=== PATIENT | male | born 1930 | race Caucasian/White ===

== ENCOUNTER 2017-07-06 11:50 | Inpatient (IN) | payer MEDICARE ==
--- NOTE | 2017-07-06 15:05 | RAD ---
HISTORY: Fall, right hip injury COMPARISONS: None VIEWS: 3, Frontal view of the pelvis with frontal and frog-leg views of the right hip FINDINGS: BONE DENSITY: There is diffuse osteopenia. BONES: There is a slightly impacted and angulated fracture of the subcapital right femoral neck. JOINTS: There is osteoarthritis of the hips ALIGNMENT: There is no dislocation. SOFT TISSUES: Unremarkable. OTHER FINDINGS: Degenerative changes are noted of the spine IMPRESSION: SLIGHTLY ANGULATED AND IMPACTED RIGHT FEMORAL NECK FRACTURE
[2017-07-06] MEDS ORDERED: Morphine INJ* 4 MG/ML 1 ML SYRINGE IV ONE (15:09)
[2017-07-06] MEDS ORDERED: Ondansetron INJ* 2 MG/ML VIAL IV ONE (15:11)
[2017-07-06 15:46] LABS: Hematocrit 39 % (42-52); Hemoglobin 13.2 g/dl (14.0-18.0); Mean Corpuscular HGB Conc 34 g/dl (31-36); Mean Corpuscular Hemoglobin 29 pg (27-31); Mean Corpuscular Volume 86 fL (80-94); Mean Platelet Volume 8 um3 (7.4-10.4); Red Blood Count 4.53 10^6/ul (4.0-5.4); Red Cell Distribution Width 15 % (10.5-15); White Blood Count 18.4 10^3/ul (3.5-10.8)
[2017-07-06 16:05] LABS: Albumin 4.5 g/dL (3.2-5.2); BUN/Creatinine Ratio 17.3 (8-20); Calcium 9.5 mg/dL (8.6-10.3); EGFR Non-African American 63.8 (>60); Globulin 3.2 g/dL (2-4); Total Protein 7.7 g/dL (6.4-8.9)
[2017-07-06 16:06] LABS: Troponin I 0.03 ng/mL (<0.04)
[2017-07-06] MEDS ORDERED: Morphine INJ* 2 MG/ML 1 ML SYRINGE IV PRN (16:51)
[2017-07-06] MEDS ORDERED: oxyCODONE TAB* 5 MG TAB PO PRN (16:51)
--- NOTE | 2017-07-06 17:57 | RAD ---
HISTORY: Fall, right hip injury COMPARISONS: December 26, 2015 VIEWS:1: Single frontal portable view of the chest at 5:35 PM FINDINGS: LINES AND TUBES: None. CARDIOMEDIASTINAL SILHOUETTE: The cardiomediastinal silhouette is normal for portable technique. PLEURA: The costophrenic angles are sharp. No pleural abnormalities are noted. LUNG PARENCHYMA: There is hyperinflation. ABDOMEN: The upper abdomen is clear. There is no subphrenic gas. BONES AND SOFT TISSUES: No bone or soft tissue abnormalities are noted. IMPRESSION: NO ACTIVE CARDIOPULMONARY DISEASE.
[2017-07-06] MEDS: Acetaminophen TAB* 325 MG PO SCH (18:22)
[2017-07-06] MEDS ORDERED: Buffered Lidocaine 0.9% SYRIN* 5 ML/SYR SYRINGE INTRADERM ONE (19:26)
--- NOTE | 2017-07-06 21:48 | HP ---
CC: Dr. Gonzalez * HISTORY AND PHYSICAL: DATE OF ADMISSION: 07/06/17 PRIMARY CARE PROVIDER: Dr. Gonzalez. CHIEF COMPLAINT: Right hip pain. HISTORY OF PRESENT ILLNESS: Mr. Damian is an 86-year-old male with a history of CVA in August 2016, hypertension, hyperlipidemia, and depression who presents to the emergency room after sustaining a fall the day prior to admission. Per the patient, he was trying to get up out of a chair and was utilizing his cane, though his right leg gave out and he was unable to hold himself up with a cane. The patient fell to the right. His son was presented at the time of the fall and helped to get him up and over to the couch. The patient lied on the couch and there were concerned that his knee may have been injured. Therefore, they iced his knee. The patient was able to get up from the couch and with significant assistance from the son and using a 4-wheeled walker walk to his bedroom. He lied in bed all night long. He did not sleep well, however, due to pain. The patient has had 3 doses of Extra Strength Tylenol since the fall yesterday. The patient had continued pain. Therefore, he came to the emergency room to be evaluated. The patient denies any lightheadedness, chest pain, or shortness of breath prior to or at the time of his fall. He overall is feeling okay at this point and denying any significant pain. PAST MEDICAL HISTORY: 1. 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 2. Hypertension. 3. Hyperlipidemia. 4. Depression. PAST SURGICAL HISTORY: 1. Appendectomy. 2. Prostatectomy. 3. Bilateral cataract extraction. 4. Tonsillectomy. MEDICATIONS: 1. [place] 3 fatty acid 1000 mg p.o. daily. 2. Omeprazole 20 mg p.o. daily. 3. Metoprolol tartrate 12.5 mg p.o. twice daily. 4. Lamotrigine 225 mg p.o. q.h.s. 5. Ferrous gluconate 325 mg p.o. daily. 6. Vitamin B12 1000 mcg p.o. daily. 7. Plavix 75 mg p.o. daily. 8. Lipitor 40 mg p.o. daily. ALLERGIES: No known drug allergies. FAMILY HISTORY: Mom of what the patient's son believes is complications related to dementia. Dad had a history of CVA. SOCIAL HISTORY: The patient is a former smoker. He quit approximately 40 plus years ago. He drinks alcohol on occasion. 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 He is . He has 3 children. His son, Sam, is his healthcare proxy. REVIEW OF SYSTEMS: A complete 11-system review of systems is obtained. Pertinent positives and negatives are as per HPI and otherwise negative. PHYSICAL EXAMINATION GENERAL: The patient is a well-developed, elderly thin male, lying in bed, in no acute distress. VITAL SIGNS: Blood pressure 141/60, pulse 67, respirations 16, temp 98.0, O2 sat is 96% on room air. HEENT: Pupils are equal. They are round. There is evidence of prior cataract extraction. Extraocular muscles are intact. Oropharynx is clear. Oral mucosa is moist. There is no submandibular, cervical, or supraclavicular adenopathy. Thyroid is not enlarged. No thyroid nodules are noted. PULMONARY: Lungs are clear anteriorly and at the lateral bases. CARDIAC: Normal S1 and S2. Regular rate and rhythm. I do not appreciate any murmurs, rubs, or gallops. ABDOMEN: Bowel sounds present. Abdomen is soft, nontender, nondistended. MUSCULOSKELETAL: The right lower extremity is shortened and externally rotated. SKIN: Warm and dry. I did not appreciate any rashes. There is a large area of purple bruising on the right forearm that the patient's son believes is from him trying to help him up yesterday. NEURO: Cranial nerves II through XII are grossly intact. Sensation is intact to light touch throughout. The patient is mildly dysarthric and aphasic. PSYCH: The patient appears to be alert and oriented x3. Affect appears appropriate. LABORATORY DATA: WBC 18.4, hemoglobin 13.2, hematocrit 39, platelets 848. INR 0.98. Sodium 133, potassium 4.0, chloride 97, CO2 27, BUN 19, creatinine 1.10, glucose 119, lactic acid 1.5, calcium 9.5, albumin 1.4, AST 14, ALT 31, alk phos 81, troponin 0.03, albumin 4.5. Right hip x-ray revealed slightly angulated and impacted right femoral neck fracture. 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 This is unchanged from prior. ASSESSMENT AND PLAN: Mr. Damian is an 86-year-old male who sustained a mechanical fall the day prior to admission and is now found to have a right hip fracture. 1. Right hip fracture. Management of this will be per Orthopedics. The patient in terms of his cardiac risk is not terribly active at home needing a walker or a cane to get around. He denies any chest pain at this point. The patient had an echocardiogram in August 2016, which revealed an EF of 55% to 60 %. Mild concentric LVH was observed. There is increased basal septal hypertrophy noted without evidence of an increased gradient across the left ventricular outflow tract. Left ventricular wall motion contractility were felt to be within normal limits. At this point, I do believe the patient is optimized for surgery. He has been on Plavix, however. Per Dr. Mandujano from the Plavix standpoint, the patient go to the OR tomorrow. I do feel that the patient is likely moderate to high risk given his history of being on Plavix, his age, and overall somewhat frail-appearing nature. Again, I do not feel that any further cardiac testing would be beneficial in this patient. 2. DVT prophylaxis will consist of subcu heparin tonight being held this evening for planned surgery tomorrow. The patient will be n.p.o. after midnight. 3. Hypertension. The patient will be maintained on his usual dose of metoprolol tartrate. His blood pressure is under fair controlled in 130s to 140s range. At this point, I do not feel that we need to be more aggressive in lowering his blood pressure. 4. Depression. The patient will continue on his usual dose of lamotrigine. 5. History of cerebrovascular accident. The patient will continue on his statin, but his Plavix will be held for now though this will need to be restarted as soon as possible after being okayed by Orthopedics. 6. DVT prophylaxis. According to the Adult Thrombosis Prophylaxis Risk Factor Assessment Guide, the patient has a total risk factor score of 8 making him the highest risk,. He will be placed on heparin 5000 units subcutaneous q.8 hours and SCDs. 7. Code status is DNR. Again, the patient indicates that his son, Sam, is his healthcare proxy. TIME SPENT: 65 minutes were spent admitting this patient. [id number]/[facility] #: [id number] ARABELLA
[2017-07-06] MEDS ORDERED: Heparin VIAL(*) 5000 UNITS/ML VIAL (FIVE THOUSAND) SUBCUT SCH (22:00)
--- NOTE | 2017-07-06 22:20 | CONS ---
CONSULTATION REPORT: DATE OF CONSULTATION: 07/06/17 HISTORY OF PRESENT ILLNESS: The patient is an 86-year-old man, a community ambulator with his son with a walker or cane, who presents status post a fall at home, mechanical, sustained last night at approximately 6:30 p.m. on 07/05/17 , who presented via the emergency department today with complaints of right hip pain and x-rays demonstrated at a right hip fracture. Orthopedic Surgery consultation was called. I am very familiar with the patient and his son as the patient is a clinic patient of [facility]. I have managed him for multiple months nonoperatively for right knee osteoarthritis, severe valgus type. The patient's recent past medical history has been significant for a cerebrovascular accident with a prolonged recovery from that. The patient and his son states that last night at approximately 6:30 p.m., the patient was getting up from a chair and turning, with a cane in his right hand when he lost his footing and fell. He landed on his right side. This was unwitnessed, but the patient's son came into the room and found him on the ground. At first, the patient and his son thought that the pain was secondary to his right knee, that has been painful in the past. His right knee was iced at first. The patient rested. When the patient had pain that persisted today that he localized closer to the hip, the patient's son decided to bring him to the emergency department for analysis. The patient's last dose of Plavix was this morning. The patient had treated the pain at home with only Tylenol prior to being brought to the emergency department. The patient denies any head trauma or headache after his injury. PAST MEDICAL HISTORY: Recent cerebrovascular accident, in August 2016, acute, left, posterior, middle cerebral artery distribution, treated at [facility]; hypertension; hyperlipidemia; depression; bipolar disorder. PAST SURGICAL HISTORY: Prostatectomy, appendectomy. MEDICATIONS: 1. Lipitor. 2. Omeprazole. 3. Lamictal. 4. Metoprolol. 5. Plavix 75 mg p.o. daily. ALLERGIES: AMOXICILLIN (unknown reaction), CELEBREX (unknown reaction). SOCIAL HISTORY: Smoking, rare alcohol use, marijuana use. REVIEW OF SYSTEMS: The patient denies fever, sweats, chills. Denies current chest pain and shortness of breath. Denies headache. PHYSICAL EXAMINATION: Vital Signs: At 3:04 p.m. on 07/06/17, temperature 98.0 degrees Fahrenheit, pulse 82, blood pressure 127/84, respiratory rate 16, and pulse ox 95% on room air. No acute distress. Alert and oriented, the patient's mood and affect are unchanged from last clinic exam with me. The patient is somewhat hard of hearing and so sometimes does not fully grasp discussion points that his son will try and assist. The patient has a angry-looking visage, but was positive about his possible recovery and happy to see me (when I first had seen the patient in clinic, he seemed to prone to angry outbursts, but that has changed over the last several months). Well coordinated bilateral upper and lower extremities. I did not assess gait as I did not want the patient to be caused pain. The patient is lying supine on stretcher in emergency department. His right lower extremity is shortened and externally rotated. Tenderness to palpation on the right hip area. Pain with flexion or extension passively of the right hip. Neurovascularly intact distally. No significant soft tissue swelling or bruising. Skin is intact. Strength testing not assessed secondary to it would cause discomfort. IMAGING: Three x-ray views of right hip were obtained and demonstrate a displaced fracture of the right femoral neck. ASSESSMENT: 1. Right hip displaced femoral neck fracture. 2. Multiple medical problems including a cerebrovascular accident in August 2016, ischemic. PLAN: 1. Nonweightbearing and pain control as of now. 2. To the operating room for right hip bipolar hemiarthroplasty. This can be done when the patient is optimized per the hospitalist service to which he is admitted. 3. I discussed the surgical procedure and the rehabilitation timeline with the patient and his son. They understood. 4. I just recently reviewed with literature on stoppage of Plavix preoperatively for hip fractures and there are multiple studies including one in the [employer] Journal of Medicine that dictate no increased morbidity or increased intraoperative bleeding with the immediate operation of these patients rather than waiting the 5 days, which is typical for elective surgeries with patients on Plavix. 5. NPO after midnight with IV fluids in case the patient can go to the operating room on the morning of 07/07/17. [id number]/[facility] #: [id number] ARABELLA
[2017-07-07] MEDS: Acetaminophen TAB* 325 MG PO SCH ×4 (00:22→17:14)
[2017-07-07 01:08] LABS: Urine Bacteria Absent (Absent); Urine Bilirubin Negative (Negative); Urine Glucose Negative (Negative); Urine Nitrite Negative (Negative)
[2017-07-07 07:11] LABS: Hematocrit 36 % (42-52); Hemoglobin 11.4 g/dl (14.0-18.0); Mean Corpuscular HGB Conc 32 g/dl (31-36); Mean Corpuscular Hemoglobin 28 pg (27-31); Mean Corpuscular Volume 86 fL (80-94); Mean Platelet Volume 8 um3 (7.4-10.4); Red Blood Count 4.11 10^6/ul (4.0-5.4); Red Cell Distribution Width 15 % (10.5-15); White Blood Count 11.3 10^3/ul (3.5-10.8)
[2017-07-07 07:23] LABS: BUN/Creatinine Ratio 16.7 (8-20); Calcium 8.9 mg/dL (8.6-10.3); EGFR African American 78.7 (>60); EGFR Non-African American 61.2 (>60); Potassium 4.4 mmol/L (3.5-5.0)
--- NOTE | 2017-07-07 07:55 | PN ---
Progress Note - Progress Note Date of Service: 07/07/17 SOAP: Subjective: Right hip pain. Optimized/cleared per medicine. Objective: NAD RLE: - short, externally rotated - NVID Selected Entries 07/07/17 03:33 Temperature 98.7 F Pulse Rate 64 Respiratory 14 Rate Blood Pressure 113/52 (mmHg) O2 Sat by Pulse 98 Oximetry Laboratory Tests 07/06/17 07/07/17 07/07/17 15:36 00:40 06:46 WBC 18.4 H 11.3 H Hct 39 L 36 L Plt Count 656 H D Urine Nitrate Negative Ur Leukocyte Esterase Negative Urine Bacteria Absent Assessment: Displaced femoral neck fracture Plan: - to OR for right hip bipolar hemiarthroplasty this morning - hold anticoagulation (heparin SQ) and Plavix - NPO
[2017-07-07] MEDS ORDERED: Omeprazole CAP* 20 MG PO SCH (09:00)
[2017-07-07] MEDS: Metoprolol Tartrate TAB* 25 MG PO SCH ×2 (09:38→20:11)
[2017-07-07] MEDS ORDERED: Bupivacaine 0.5% W/EPI SDV* 30 ML VIAL ONE (11:09)
[2017-07-07] MEDS ORDERED: Clindamycin 900 MG IVPREMIX(* 900 MG/50 ML SDV IV ONE (11:10)
[2017-07-07] MEDS ORDERED: fentaNYL* 50 MCG/ML 2 ML VIAL (100 MCG VIAL) ONE ×2 (11:14→14:17)
[2017-07-07] MEDS ORDERED: Propofol* 10 MG/ML 20 ML BTL IV PUSH ONE (11:15)
[2017-07-07] MEDS ORDERED: Lidocaine 2% PF * 5 ML VIAL ONE (11:15)
[2017-07-07] MEDS ORDERED: EPHEDrine (Pressors)* 50 MG/ML VIAL ONE (11:53)
[2017-07-07] MEDS ORDERED: Phenylephrine IV* 40 MCG/ML 10 ML SYRINGE ONE (11:53)
[2017-07-07] MEDS ORDERED: DiMENhydriNATE IV* 50 MG/ML VIAL IV PUSH PRN (12:32)
--- NOTE | 2017-07-07 13:15 | PN ---
Subjective Date of Service: 07/07/17 Interval History: HOSPITALIST PROGRESS NOTE Patient seen and examined at bedside. He states his pain is controlled, offers no complaints at this time. Family History: Unchanged from Admission Social History: Unchanged from Admission Past Medical History: Unchanged from Admission Objective Active Medications: Acetaminophen (Tylenol Tab*) 975 mg PO Q6HR [facility] Last Admin: 07/07/17 06:05 Dose: 975 mg Atorvastatin Calcium (Lipitor*) 40 mg PO 1700 [facility] Cyanocobalamin (Vitamin B12 Tab*) 1,000 mcg PO DAILY [facility] Dimenhydrinate (Dramamine Iv*) 12.5 mg IV PUSH ONCE PRN PRN Reason: NAUSEA/VOMITING Stop: 07/07/17 12:33 Fentanyl Citrate (Fentanyl*) 25 mcg IV Q5M PRN PRN Reason: PAIN - MODERATE Stop: 07/07/17 12:53 Ferrous Gluconate (Fergon Tab*) 325 mg PO DAILY [facility] Hydromorphone HCl (Dilaudid Iv*) 0.1 mg IV Q10M PRN PRN Reason: PAIN - SEVERE Stop: 07/07/17 13:13 Lactated Ringer's (Lactated Ringers 1000 Ml Bag*) 1,000 mls @ 125 mls/hr IV PER RATE [facility] Last Admin: 07/07/17 06:01 Dose: 125 mls/hr Lamotrigine (Lamictal Tab(*)) 200 mg PO BEDTIME [facility] Lamotrigine (Lamictal Tab(*)) 25 mg PO BEDTIME [facility] Metoprolol Tartrate (Lopressor Tab*) 12.5 mg PO Q12HR [facility] Last Admin: 07/07/17 09:38 Dose: 12.5 mg Morphine Sulfate (Morphine Inj (Syringe)*) 2 mg IV Q4H PRN PRN Reason: PAIN - MILD Omeprazole (Prilosec Cap*) 20 mg PO DAILY [facility] Last Admin: 07/07/17 09:38 Dose: 20 mg Oxycodone HCl (Roxycodone Tab*) 5 mg PO Q4H PRN PRN Reason: PAIN Vital Signs 07/07/17 08:07 Temperature 97.8 F Pulse Rate 64 Respiratory 12 Rate Blood Pressure 126/60 (mmHg) O2 Sat by Pulse 98 Oximetry Oxygen Devices in Use Now: Nasal Cannula Appearance: Elderly male lying in bed in NAD. Eyes: No Scleral Icterus Ears/Nose/Mouth/Throat: Mucous Membranes Moist Neck: Trachea Midline Respiratory: Symmetrical Chest Expansion and Respiratory Effort, Clear to Auscultation Cardiovascular: RRR - Normal S1 and S2 Abdominal: NL Sounds; No Tenderness; No Distention Extremities: No Edema, - - RLE shortened, externally rotated Neurological: Alert and Oriented x 3, NL Muscle Strength and Tone Lines/Tubes/Other Access: Clean, Dry and Intact Peripheral IV Result Diagrams: 07/07/17 06:46 07/07/17 06:46 Assess/Plan/Problems-Billing Assessment: Mr. Damian is an 86yo M with PMH of CVA, HTN, HLD, depression, who presented to ED with c/o right hip pain after a mechanical fall, found to have right femoral neck fracture. - Patient Problems (1) Fracture of femoral neck, right, closed Comment: - Ortho input appreciated - plan for OR today. - Patient has no complaints of CP, dyspnea, palpitations. Agree with Dr. Antonio' s assessment patient is optimized for surgery. 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 - Probably higher now due to stress associated with fall and fracture. - Patient not interested in further w/u, but can continue conversations as outpatient. (3) Hypertension Comment: - Controlled. - Continue Metoprolol. (4) Hyperlipidemia Comment: - Continue statin. (5) H/O: CVA (cerebrovascular accident) Comment: - Plavix on hold - will resume when okay with Ortho. (6) DNR (do not resuscitate) Status and Disposition: Inpatient for surgical management of hip fracture.
[2017-07-07] MEDS ORDERED: HYDROmorphone* 1 MG/ML 1 ML SYR ONE (14:17)
[2017-07-07] MEDS: fentaNYL* 50 MCG/ML 2 ML VIAL (100 MCG VIAL) IV PRN ×4 (14:18→14:52)
[2017-07-07] MEDS: HYDROmorphone* 1 MG/ML 1 ML SYR IV PRN ×2 (14:21→14:31)
--- NOTE | 2017-07-07 14:50 | RAD ---
INDICATION: Right hip arthroplasty COMPARISON: July 06, 2017 TECHNIQUE: A single view the pelvis is submitted. FINDINGS: There is right hip arthroplasty. The prosthesis appears well seated. There are skin ruthann with soft tissue changes compatible with the recent surgery. Multiple surgical loops project over the minor pelvis consistent with prostatectomy IMPRESSION: RIGHT HIP ARTHROPLASTY. THE PROSTHESIS APPEARS WELL SEATED
[2017-07-07] MEDS ORDERED: Magnesium Hydroxide LIQ* 30 ML UDC PO PRN (15:40)
[2017-07-07] MEDS ORDERED: oxyCODONE/Acetamin 5/325 MG* TAB PO PRN (15:47)
[2017-07-07] MEDS: Ferrous Gluconate TAB* 324 MG TAB PO SCH (15:51)
[2017-07-07] MEDS: Cyanocobalamin TAB* 500 MCG PO SCH (15:51)
[2017-07-07] MEDS ORDERED: Ondansetron INJ* 2 MG/ML VIAL IV PRN (16:31)
[2017-07-07] MEDS: Atorvastatin* 40 MG TAB PO SCH (17:15)
[2017-07-07] MEDS: Morphine INJ* 2 MG/ML 1 ML SYRINGE IV PRN (17:40)
[2017-07-07] MEDS: lamoTRIgine TAB(*) 25 MG PO SCH (20:11)
[2017-07-07] MEDS: lamoTRIgine TAB(*) 100 MG PO SCH (20:11)
[2017-07-07] MEDS: Clindamycin 600 MG IVPREMIX(* 600 MG/50 ML SDV IV SCH (20:11)
--- NOTE | 2017-07-07 20:16 | ED ---
Renee Mock Thomas, scribed for Arya Haley MD on 07/06/17 at 1552 . Lower Extremity - HPI Summary HPI Summary: The pt is a 86 y/o MF presenting to the ED c/o R hip pain s/p a fall yesterday at 12:00. The pain is rated 5/10. The pain is aggravated by movement and alleviated by nothing. The patient has treated the pain with Tylenol 500mg WELLNESS SPECIALIST. At the time of evaluation, he has already received pain medication and his Hip XR has already been read by radiology. He has no other complaints at this time. PMHx: HTN, arthritis, depression, bipolar disorder. PSHx: prostatectomy, appendectomy. SHx: smoking, rare alcohol use, marijuana use. FHx: DM, CAD. - History of Current Complaint Chief Complaint: EDExtremityLower Stated Complaint: FALL/RT HIP INJURY Time Seen by Provider: 07/06/17 15:48 Hx Obtained From: Patient Mechanism Of Injury: Fall From A Standing Position Onset/Duration: Days - yesterday Severity Currently: Moderate Pain Intensity: 5 Pain Scale Used: 0-10 Numeric Timing: Constant Associated Signs And Symptoms: Positive: Negative Aggravating Factor(s): Movement Alleviating Factor(s): Nothing - Allergies/Home Medications Allergies/Adverse Reactions: Allergies Allergy/AdvReac Type Severity Reaction Status Date / Time Amoxicillin Allergy Unknown Verified 08/25/16 18:37 Reaction Details Celecoxib [From Celebrex] Allergy Unknown Verified 08/25/16 18:37 Reaction Details PMH/Surg Hx/FS Hx/Imm Hx Previously Healthy: No Cardiovascular History: Reports: Hx Angina, Hx Hypercholesterolemia, Hx Hypertension Denies: Hx Pacemaker/ICD GI History: Reports: Hx Hiatal Hernia Musculoskeletal History: Reports: Hx Arthritis - right knee, Hx Back Problems - lower back pain Sensory History: Reports: Hx Contacts or Glasses - not with pt, Hx Hearing Problem - [place], does not wear hearing aides Denies: Hx Hearing Aid Opthamlomology History: Reports: Hx Contacts or Glasses - not with pt Psychiatric History: Reports: Hx Depression, Hx Bipolar Disorder, Hx Substance Abuse - marijuana and acid Denies: Hx Panic Disorder - Surgical History Surgery Procedure, Year, and Place: Prostatectomy, appendix removed as a child, LEFT FOOT WITH METAL PIN Infectious Disease History: No Infectious Disease History: Denies: Traveled Outside the [place] in Last 30 Days - Family History Known Family History: Positive: Cardiac Disease, Diabetes - Social History Alcohol Use: Rare Substance Use Type: Reports: Marijuana Substance Use Comment - Amount & Last Used: 5-6 TIMES A WEEK IN PM,2HITS Smoking Status (MU): Light Every Day Tobacco Smoker Type: Pipe Length of Time of Smoking/Using Tobacco: PIPE 1-2 TIMES A DAY, DOES NOT INHALE Have You Smoked in the Last Year: Yes - PIPE ONLY, ONCE OR TWICE A DAY Review of Systems Negative: Fever Positive: Other - POS: R hip pain s/p a fall yesterday All Other Systems Reviewed And Are Negative: Yes Physical Exam Triage Information Reviewed: Yes Vital Signs On Initial Exam: Initial Vitals Temp Pulse Resp BP Pulse Ox 97.9 F 61 18 108/73 98 07/06/17 11:54 07/06/17 11:54 07/06/17 11:54 07/06/17 11:54 07/06/17 11:54 Vital Signs Reviewed: Yes Appearance: Positive: Well-Appearing, No Pain Distress, Well-Nourished Skin: Positive: Warm, Skin Color Reflects Adequate Perfusion, Dry Head/Face: Positive: Normal Head/Face Inspection Eyes: Positive: Normal ENT: Positive: Normal ENT inspection Neck: Positive: Supple, Nontender Respiratory/Lung Sounds: Positive: Clear to Auscultation, Breath Sounds Present Cardiovascular: Positive: RRR Abdomen Description: Positive: Nontender, Soft Bowel Sounds: Positive: Present Musculoskeletal: Positive: Other - The right leg is inwardly angulated. It is tender to range of motion. Neurological: Positive: Normal Psychiatric: Positive: Normal, Affect/Mood Appropriate Diagnostics - Vital Signs Vital Signs Temp Pulse Resp BP Pulse Ox 07/06/17 15:38 16 07/06/17 15:04 98.0 F 82 16 127/84 95 07/06/17 14:16 98.5 F 60 16 102/63 99 07/06/17 11:54 97.9 F 61 18 108/73 98 - Laboratory Lab Results: Lab Results 07/06/17 07/06/17 07/06/17 Range/Units 15:36 15:36 15:36 WBC 18.4 H (3.5-10.8) 10^3/ul RBC 4.53 (4.0-5.4) 10^6/ul Hgb 13.2 L (14.0-18.0) g/dl Hct 39 L (42-52) % MCV 86 (80-94) fL MCH 29 (27-31) pg MCHC 34 (31-36) g/dl RDW 15 (10.5-15) % Plt Count 848 H (150-450) 10^3/ul MPV 8 (7.4-10.4) um3 Neut % (Auto) 86.7 H (38-83) % Lymph % (Auto) 5.1 L (25-47) % [place] % (Auto) 6.1 (1-9) % Eos % (Auto) 1.3 (0-6) % Baso % (Auto) 0.8 (0-2) % Absolute Neuts (auto) 15.9 H (1.5-7.7) 10^3/ul Absolute Lymphs (auto) 0.9 L (1.0-4.8) 10^3/ul Absolute Monos (auto) 1.1 H (0-0.8) 10^3/ul Absolute Eos (auto) 0.2 (0-0.6) 10^3/ul Absolute Basos (auto) 0.1 (0-0.2) 10^3/ul Absolute Nucleated RBC 0 10^3/ul Nucleated RBC % 0 INR (Anticoag Therapy) 0.98 (0.89-1.11) APTT 38.9 H (26.0-36.3) seconds Sodium 133 (133-145) mmol/L Potassium 4.0 (3.5-5.0) mmol/L Chloride 97 L (101-111) mmol/L Carbon Dioxide 27 (22-32) mmol/L Anion Gap 9 (2-11) mmol/L BUN 19 (6-24) mg/dL Creatinine 1.10 (0.67-1.17) mg/dL Est GFR ( Amer) 82.0 (>60) Est GFR (Non-Af Amer) 63.8 (>60) BUN/Creatinine Ratio 17.3 (8-20) Glucose 119 H (70-100) mg/dL Lactic Acid (0.5-2.0) mmol/L Calcium 9.5 (8.6-10.3) mg/dL Total Bilirubin 1.00 (0.2-1.0) mg/dL AST 44 H (13-39) U/L ALT 31 (7-52) U/L Alkaline Phosphatase 81 (34-104) U/L Troponin I 0.03 (<0.04) ng/mL Total Protein 7.7 (6.4-8.9) g/dL Albumin 4.5 (3.2-5.2) g/dL Globulin 3.2 (2-4) g/dL Albumin/Globulin Ratio 1.4 (1-3) Blood Type Antibody Screen 07/06/17 07/06/17 Range/Units 15:36 15:36 WBC (3.5-10.8) 10^3/ul RBC (4.0-5.4) 10^6/ul Hgb (14.0-18.0) g/dl Hct (42-52) % MCV (80-94) fL MCH (27-31) pg MCHC (31-36) g/dl RDW (10.5-15) % Plt Count (150-450) 10^3/ul MPV (7.4-10.4) um3 Neut % (Auto) (38-83) % Lymph % (Auto) (25-47) % [place] % (Auto) (1-9) % Eos % (Auto) (0-6) % Baso % (Auto) (0-2) % Absolute Neuts (auto) (1.5-7.7) 10^3/ul Absolute Lymphs (auto) (1.0-4.8) 10^3/ul Absolute Monos (auto) (0-0.8) 10^3/ul Absolute Eos (auto) (0-0.6) 10^3/ul Absolute Basos (auto) (0-0.2) 10^3/ul Absolute Nucleated RBC 10^3/ul Nucleated RBC % INR (Anticoag Therapy) (0.89-1.11) APTT (26.0-36.3) seconds Sodium (133-145) mmol/L Potassium (3.5-5.0) mmol/L Chloride (101-111) mmol/L Carbon Dioxide (22-32) mmol/L Anion Gap (2-11) mmol/L BUN (6-24) mg/dL Creatinine (0.67-1.17) mg/dL Est GFR ( Amer) (>60) Est GFR (Non-Af Amer) (>60) BUN/Creatinine Ratio (8-20) Glucose (70-100) mg/dL Lactic Acid 1.5 (0.5-2.0) mmol/L Calcium (8.6-10.3) mg/dL Total Bilirubin (0.2-1.0) mg/dL AST (13-39) U/L ALT (7-52) U/L Alkaline Phosphatase (34-104) U/L Troponin I (<0.04) ng/mL Total Protein (6.4-8.9) g/dL Albumin (3.2-5.2) g/dL Globulin (2-4) g/dL Albumin/Globulin Ratio (1-3) Blood Type O Positive Antibody Screen Negative Result Diagrams: 07/07/17 06:46 07/07/17 06:46 Lab Statement: Any lab studies that have been ordered have been reviewed, and results considered in the medical decision making process. - Radiology Hip XR Xray Interpretation: Positive (See Comments) - SLIGHTLY ANGULATED AND IMPACTED RIGHT FEMORAL NECK FRACTURE. Radiology Interpretation Completed By: Radiologist Lower Extremity Course/Dx - Course Course Of Treatment: Mr. Damian fell yesterday and sustained a right hip fracture. He is being admitted to the hospitalist service with a consult by Dr. Hairston. - Diagnoses Provider Diagnoses: Closed right hip fracture - Physician Notifications Discussed Care Of Patient With: Claudia Antonio Time Discussed With Above Provider: 15:54 Instructed by Provider To: Other - Dr. Antonio, hospitalist, admits the patient at 15:54. Discharge - Discharge Plan Condition: Fair Disposition: ADMITTED TO [facility] documentation as recorded by the Renee patton Thomas accurately reflects the service I personally performed and the decisions made by me, Arya Haley MD.
[2017-07-07] MEDS ORDERED: lamoTRIgine TAB(*) 25 MG PO SCH (21:00)
[2017-07-07] MEDS ORDERED: lamoTRIgine TAB(*) 100 MG PO SCH (21:00)
[2017-07-08] MEDS: Acetaminophen TAB* 325 MG PO SCH ×2 (00:20→06:19)
[2017-07-08] MEDS: Clindamycin 600 MG IVPREMIX(* 600 MG/50 ML SDV IV SCH ×2 (03:39→11:36)
--- NOTE | 2017-07-08 04:34 | OP ---
DATE OF OPERATION: 07/07/17 - ROOM #338 DATE OF : 34 SURGEON: Fabio Mandujano MD DNA SEQUENCING ASSOCIATE: JOSÉ MIGUEL Gaona. A physician commercial lending assistant was required through the length of this procedure for positioning and retraction. ANESTHESIOLOGIST: Haroon Rowe MD ANESTHESIA: General anesthesia, local anesthesia 10 cc of Marcaine with epinephrine. PRE-OP DIAGNOSIS: Displaced right hip femoral neck fracture. POST-OP DIAGNOSIS: Displaced right femoral neck hip fracture. OPERATIVE PROCEDURE: Right hip bipolar hemiarthroplasty. INDICATIONS: The patient is an 86-year-old man, a community ambulator with his son with a walker or cane, a patient whom I have treated in clinic for right knee osteoarthritis, with status post cerebrovascular accident, August of 2016 , and on Plavix, who sustained a fracture of his right hip at approximately 6: 30 p.m. 2 days prior to surgery on 07/05/17. The patient and his son state that he got up from a chair and was using a cane and turned but that he fell when he turned. He landed on his right side. The patient had his fall unwitnessed but the patient's son found him on the ground. The patient and his son first thought it was a knee problem and so the patient had his right knee iced. When the patient's lower extremity did not improve by the next day, the patient came into the emergency department in the afternoon of 07/06/17 at [facility] and I was consulted. Radiographs from the [facility] Emergency Department demonstrated displaced right femoral neck fracture. The patient was admitted to the hospitalist service, I left a consultation note. The patient's Plavix was stopped, although he had received a dose on the morning of 07/06/17. The patient was made n.p.o. after midnight for surgery. The hospitalist service optimized and cleared the patient. I discussed with the patient as well as his son benefits, risks, and potential complications of surgery. Risks and complications were listed as including bleeding, infection, nerve or blood vessel injury, periprosthetic fracture, dislocation, . I discussed these with the patient and the son who brought him into the emergency room. I also briefly discussed them with the patient's other son who is his power of machine stitcher and signed the patient's surgical consent form after the patient himself had signed it. IV FLUIDS: 2200 cc crystalloid. ANTIBIOSIS: Clindamycin 900 mg IV. COMPLICATIONS: None. ESTIMATED BLOOD LOSS: 300 cc. SPECIMEN: Femoral head. IMPLANTS: Yvette M/L taper hip prosthesis, right, press-fit standard offset. Femoral head 28 mm in diameter, +3.5 mm neck length. Bipolar cup liner 28-mm inner diameter for use with 50- to 52-mm outside diameter shells. Bipolar cup shell. URINE OUTPUT: See Anesthesia note. DESCRIPTION OF PROCEDURE: Preoperative written consent was obtained as detailed above. Operative limb was marked in the patient's floor room. The patient was taken back to the operating room and intubated by Anesthesia. This was done on the operating room table. The patient was then placed into the lateral decubitus position. An axillary roll was placed, inferior to the axilla. A Velasquez was placed with the patient in the lateral decubitus position. On the pegboards, 4 pegs were placed, posteriorly about the sacrum and upper back and anteriorly about the pubis and chest. The patient was nicely in aligned straight lateral decubitus position. Operative hip could clearly be flexed and adducted without any obstruction. Pins were well padded. A nonsterile U drape and 10-10 drapes were used to drape out the surgical area prior to prep. Prep was then performed with a ChloraPrep stick starting from the foot and then including the entire lower extremity to superior to the iliac crest. Draping was done. Surgical time-out was performed. A skin incision was then made with a 10 blade. I steve an almost straight line with the knee flexed in 80 degrees of flexion just posterior to the midline of the proximal femur, with the incision 50% proximal to the greater trochanter and 50% distal to it. I then placed the hip back into a position of only 10 or 20 degrees of flexion. The skin incision was made with a 10 blade. Deep knife was then used to incise through subcutaneous tissue down to the gluteus leanne fascia and iliotibial band. Retractors were placed, not much hemostasis was required with Bovie electrocautery. I then abducted the hip to take pressure off the iliotibial band. I then a made a curving incision in the gluteus leanne fascia and iliotibial band. I then spread the gluteus leanne muscle fibers proximally and had my commercial lending assistant Bovie any bleeders. I then extended and internally rotated the hip. Charnley retractor was not required as the patient was quite thin. I used a Schnidt forceps to grab bursa overlying the external rotators and then Bovie through that bursa. I was then able to have good visualization of the external rotators including the piriformis. I identified just superior to the piriformis the plane between the superior capsule and the gluteus minimus. I placed an osteotome between these two and followed it with a Cobra. I retracted likely on posterior tissues with a Cobra placed about the lesser trochanter. I then carefully peeled the external rotators off the proximal femur. Just prior to releasing the piriformis, I placed a #2 FiberWire stitch in it right near its insertion on the femur. I removed from bone with cautery first the external rotators and the piriformis. I then as a separate layer removed the posterior capsule. I made trapezoidal capsular cut, maximally freeing up this capsule to use in an excellent repair for the end of the case. The patient was remarkable in that he had a very wade capsular tissue as well as external rotators. I placed 4 stitches, figure-of-8, including the one in the piriformis into the posterior tissues. Two of these stitches were in the posterior capsule, one within the piriformis and one within the gemellus musculotendinous units. I was aware throughout the location of the sciatic nerve and the fat about it. It was clear that that those muscles and tendons would make a wade repair construct at the conclusion of the case. After the external rotators had been taken down, I then repositioned a Cobra about the inferior neck and lesser tuberosity trochanter. I then flexed, adducted, and internally rotated the hip. I made a marking with electrocautery where I wanted my femoral neck cut to be. I used a broach alignment guide to pick the obliquity of my cut and I chose it just over 1 cm proximal to the lesser trochanter. Retractors were placed. Oscillating saw was used to make femoral neck cut. Went all the way through. Cut neck was removed. I then removed the femoral head with an ice cream scoop type device. Femoral head was sized to a 51 mm. I trialed both the 51 and a 52-mm head as the size of the [place] head was slightly in the plus direction. The 51-mm head clearly sat down better in the acetabulum, so I picked that as my femoral head size. I then returned the hip to the flexed, internally rotated, and adducted position. Retractors were placed again. I then placed a canal finder followed by the lateralizing reamer. I was prepared to place a cemented or uncemented stem. My default is uncemented but given some osteopenia on preoperative x-ray, I was ready to place a cemented stem. The patient's medullary bone seemed decent and so I went forward assuming I will be able to place a noncemented stem. I broached up to a 13.5-mm broach. I had initially broached to 12.5 and then trialed with the head and neck up to 7 mm in head offset. While that was incredibly stable and not too long, I thought that I would go one side higher with the broach as my neck cut was just above where the implant head sunk inferior to. Therefore, I broached to 13.5 mm. I then trialed head and neck and liked my range of motion and my stability. The hip was stable to a high amount of internal rotation. I trialed with a 0 head. This got me to 65 or 70 degrees of internal rotation with the hip flexed in adducted until any instability was encountered. We did not have a 3.5-mm head trial. I therefore decided I wanted a little bit more stability in that likely go with the 3.5-mm final head size. I then placed a final implant, 13.5 in the femur. I liked the fit. Both when I moved the 13.5-mm broach and the final implant, the whole leg moved side to side; upper leg, thigh, and lower leg confirming excellent fit. There was no worrisome change in sound while I placed the reamer and the final implant into place. With the femoral stem in place, I then irrigated profusely the wound. I then trialed again and then placed my final implants as noted above in the implant section. I picked a 3.5-mm plus head. The hip was incredibly stable. It maintained its stability with hip flexion to 90 degrees, adduction and internal rotation to 80 degrees. The leg lengths were noted to be approximately equal. This was noted by feel through the drapes as I could feel the contralateral patella and foot. Irrigation. I placed 2 drill holes in the posterior aspect of the proximal femur. I pulled 4 sets of sutures through these 2 drill holes and tied the first and third and second and fourth pairs of sutures together. I did this with the hip in a slightly externally rotated and fully extended position. Irrigation. Closure of the gluteus leanne and iliotibial band with a figure-of -8 stitch using Vicryl 0 suture and then several running stitches using the same suture material. Irrigation. Closure of subcutaneous tissue with buried simple stitches using Vicryl 2-0 suture. Closure of the skin with ruthann. The patient had 10 cc of 0.5% Marcaine with epinephrine placed into the subcutaneous and deeper tissues after the ruthann had been placed in the skin but before the Xeroform had been applied to the skin. Xeroform, 4x4's, ABD, foam tape. The patient was returned to the supine position. An abduction brace was placed. The patient was awakened and extubated. DISPOSITION: The patient would be readmitted to the hospitalist service postoperatively with Orthopedics consulting. I discussed with the hospitalist attending the plan. The patient will have pain controlled with oral and/or IV narcotics as needed. The patient will be returned to Plavix tomorrow morning for stroke prevention. He will also be on the Lovenox 40 mg subcu daily starting the morning of 07/08/17, 40 mg subcu daily x4 weeks for DVT prophylaxis. The Plavix is required as the patient had a stroke previously on aspirin. The patient will be weightbearing as tolerated and will do physical therapy. The patient will get 3 doses of clindamycin IV for infection prophylaxis. The patient will follow up with me 2 weeks postoperatively in clinic for x-rays and removal of ruthann. [id number]/[facility] #: [id number] [facility]
[2017-07-08] MEDS: Enoxaparin(*) 40 MG/0.4 ML SYR SUBCUT SCH (06:19)
[2017-07-08 07:00] LABS: Hematocrit 26 % (42-52); Hemoglobin 8.6 g/dl (14.0-18.0)
[2017-07-08 07:28] LABS: BUN/Creatinine Ratio 17.5 (8-20); Calcium 8.2 mg/dL (8.6-10.3); EGFR African American 94.8 (>60); EGFR Non-African American 73.7 (>60); Potassium 4.2 mmol/L (3.5-5.0)
[2017-07-08] MEDS: Metoprolol Tartrate TAB* 25 MG PO SCH ×2 (08:21→22:09)
[2017-07-08] MEDS: Ferrous Gluconate TAB* 324 MG TAB PO SCH (09:35)
[2017-07-08] MEDS: CMCS:Pantoprazole TAB (NF) 40 MG TAB PO SCH (09:35)
[2017-07-08] MEDS: Cyanocobalamin TAB* 500 MCG PO SCH (09:35)
[2017-07-08] MEDS: Clopidogrel TAB* 75 MG PO SCH (09:35)
[2017-07-08] MEDS ORDERED: Acetaminophen TAB* 325 MG PO PRN (11:23)
[2017-07-08] MEDS: oxyCODONE/Acetamin 5/325 MG* TAB PO PRN ×3 (11:26→22:07)
--- NOTE | 2017-07-08 13:22 | PN ---
Progress Note - Progress Note Date of Service: 07/08/17 SOAP: Subjective: POD #1 Right hip hemiarthroplasty. States that he is doing pretty well, no c/o pain at this time. Denies CP/SOB, calf pain, f/c. Objective: Vitals: Temp Pulse Resp BP Pulse Ox 98.1 F 92 16 128/59 94 07/08/17 11:35 07/08/17 11:35 07/08/17 11:35 07/08/17 11:35 07/08/17 11:35 Gen: A&Ox2, confused to date. NAD at rest sitting in bed Right Hip: Dressing C/D/I, thigh soft, NT. +f/e at knee, ankle and MTPs. N/V intact Labs: Laboratory Results - last 24 hr 07/08/17 07/08/17 06:19 06:19 Hgb 8.6 L Hct 26 L Sodium 127 L Potassium 4.2 Chloride 97 L Carbon Dioxide 29 Anion Gap 1 L BUN 17 Creatinine 0.97 Est GFR ( Amer) 94.8 Est GFR (Non-Af Amer) 73.7 BUN/Creatinine Ratio 17.5 Glucose 109 H Calcium 8.2 L Assessment: POD #1 Right hip hemiarthroplasty Plan: PT/OT with WBAT RLE PMRU consult Lovenox for DVT ppx
[2017-07-08] MEDS: Morphine INJ* 2 MG/ML 1 ML SYRINGE IV PRN ×2 (14:58→19:43)
--- NOTE | 2017-07-08 15:24 | PN ---
Subjective Date of Service: 07/08/17 Interval History: HOSPITALIST PROGRESS NOTE Patient seen and examined at bedside. He feels well today. Was able to ambulate with PT to his door and back. Pain is controlled. Family History: Unchanged from Admission Social History: Unchanged from Admission Past Medical History: Unchanged from Admission Objective Active Medications: Acetaminophen (Tylenol Tab*) 975 mg PO Q6HR PRN PRN Reason: mild pain/fever Atorvastatin Calcium (Lipitor*) 40 mg PO 1700 [facility] Last Admin: 07/07/17 17:15 Dose: 40 mg Clopidogrel Bisulfate (Plavix Tab*) 75 mg PO DAILY [facility] Last Admin: 07/08/17 09:35 Dose: 75 mg Cyanocobalamin (Vitamin B12 Tab*) 1,000 mcg PO DAILY [facility] Last Admin: 07/08/17 09:35 Dose: 1,000 mcg Enoxaparin Sodium (Lovenox(*)) 40 mg SUBCUT Q24H [facility] Last Admin: 07/08/17 06:19 Dose: 40 mg Ferrous Gluconate (Fergon Tab*) 325 mg PO DAILY [facility] Last Admin: 07/08/17 09:35 Dose: 324 mg Lamotrigine (Lamictal Tab(*)) 100 mg PO BEDTIME [facility] Last Admin: 07/07/17 20:11 Dose: 100 mg Lamotrigine (Lamictal Tab(*)) 25 mg PO BEDTIME [facility] Last Admin: 07/07/17 20:11 Dose: 25 mg Magnesium Hydroxide (Milk Of Magnesia Liq*) 30 ml PO Q4H PRN PRN Reason: CONSTIPATION Metoprolol Tartrate (Lopressor Tab*) 12.5 mg PO Q12HR [facility] Last Admin: 07/08/17 08:21 Dose: Not Given Morphine Sulfate (Morphine Inj (Syringe)*) 2 mg IV Q3H PRN PRN Reason: PAIN Last Admin: 07/08/17 14:58 Dose: 2 mg Ondansetron HCl (Zofran Inj*) 4 mg IV Q6H PRN PRN Reason: NAUSEA/VOMITING Last Admin: 07/07/17 17:15 Dose: 4 mg Oxycodone/Acetaminophen (Percocet 5/325 Tab*) 1 tab PO Q4H PRN PRN Reason: PAIN - MODERATE Oxycodone/Acetaminophen (Percocet 5/325 Tab*) 2 tab PO Q4H PRN PRN Reason: PAIN - SEVERE Last Admin: 07/08/17 11:26 Dose: 2 tab Pantoprazole Sodium (Protonix Tab (Nf)) 40 mg PO DAILY [facility] Last Admin: 07/08/17 09:35 Dose: 40 mg Vital Signs 07/08/17 07/08/17 07/08/17 11:35 13:26 14:58 Temperature 98.1 F Pulse Rate 92 Respiratory 16 16 16 Rate Blood Pressure 128/59 (mmHg) O2 Sat by Pulse 94 Oximetry Oxygen Devices in Use Now: Nasal Cannula Appearance: Pleasant elderly male sitting up in a recliner in NAD. Eyes: No Scleral Icterus Ears/Nose/Mouth/Throat: Mucous Membranes Moist Neck: Trachea Midline Respiratory: Symmetrical Chest Expansion and Respiratory Effort, Clear to Auscultation Cardiovascular: RRR - Normal S1 and S2 Abdominal: NL Sounds; No Tenderness; No Distention Neurological: - - AAOx2 (self and place), HOWELL Lines/Tubes/Other Access: Clean, Dry and Intact Peripheral IV Nutrition: Taking PO's Result Diagrams: 07/08/17 06:19 07/08/17 06:19 Assess/Plan/Problems-Billing Assessment: Mr. Damian is an 86yo M with PMH of CVA, HTN, HLD, depression, who presented to ED with c/o right hip pain after a mechanical fall, found to have right femoral neck fracture. - Patient Problems (1) Fracture of femoral neck, right, closed Comment: - S/p right hemiarthroplasty done 07/07/17. - Management as per Ortho. - Continue PT/OT, awaiting PMRU eval. - D/c IVF and Velasquez. (2) Acute blood loss anemia Comment: - Suspect patient was hemoconcentrated on admission and had drop due to surgical blood loss. - Continue to monitor H/H - will transfuse if Hb<7.0. 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 - Probably higher now due to stress associated with fall and fracture. - Patient not interested in further w/u, but can continue conversations as outpatient. (4) Hypertension Comment: - Controlled. - Continue Metoprolol. (5) Hyperlipidemia Comment: - Continue statin. (6) H/O: CVA (cerebrovascular accident) Comment: - Resumed Plavix today. (7) DNR (do not resuscitate) Status and Disposition: Inpatient for surgical management of hip fracture.
[2017-07-08] MEDS: Atorvastatin* 40 MG TAB PO SCH (17:02)
[2017-07-08] MEDS: lamoTRIgine TAB(*) 100 MG PO SCH (22:08)
[2017-07-08] MEDS: lamoTRIgine TAB(*) 25 MG PO SCH (22:09)
[2017-07-09 06:25] LABS: Hematocrit 24 % (42-52); Hemoglobin 8.1 g/dl (14.0-18.0); Mean Corpuscular HGB Conc 34 g/dl (31-36); Mean Corpuscular Hemoglobin 29 pg (27-31); Mean Corpuscular Volume 86 fL (80-94); Mean Platelet Volume 8 um3 (7.4-10.4); Red Blood Count 2.78 10^6/ul (4.0-5.4); Red Cell Distribution Width 15 % (10.5-15); White Blood Count 8.6 10^3/ul (3.5-10.8)
[2017-07-09 06:44] LABS: BUN/Creatinine Ratio 17.9 (8-20); Calcium 8.5 mg/dL (8.6-10.3); EGFR African American 85.6 (>60); EGFR Non-African American 66.6 (>60); Potassium 4.6 mmol/L (3.5-5.0)
[2017-07-09] MEDS: Enoxaparin(*) 40 MG/0.4 ML SYR SUBCUT SCH (08:16)
[2017-07-09] MEDS: oxyCODONE/Acetamin 5/325 MG* TAB PO PRN (08:21)
--- NOTE | 2017-07-09 08:41 | PN ---
Subjective Date of Service: 07/09/17 Interval History: HOSPITALIST PROGRESS NOTE Patient seen and examined at bedside. C/o hip pain, but otherwise feels well. Family History: Unchanged from Admission Social History: Unchanged from Admission Past Medical History: Unchanged from Admission Objective Active Medications: Acetaminophen (Tylenol Tab*) 975 mg PO Q6HR PRN PRN Reason: mild pain/fever Atorvastatin Calcium (Lipitor*) 40 mg PO 1700 [facility] Last Admin: 07/08/17 17:02 Dose: 40 mg Clopidogrel Bisulfate (Plavix Tab*) 75 mg PO DAILY [facility] Last Admin: 07/08/17 09:35 Dose: 75 mg Cyanocobalamin (Vitamin B12 Tab*) 1,000 mcg PO DAILY [facility] Last Admin: 07/08/17 09:35 Dose: 1,000 mcg Enoxaparin Sodium (Lovenox(*)) 40 mg SUBCUT Q24H [facility] Last Admin: 07/09/17 08:16 Dose: 40 mg Ferrous Gluconate (Fergon Tab*) 325 mg PO DAILY [facility] Last Admin: 07/08/17 09:35 Dose: 324 mg Lamotrigine (Lamictal Tab(*)) 100 mg PO BEDTIME [facility] Last Admin: 07/08/17 22:08 Dose: 100 mg Lamotrigine (Lamictal Tab(*)) 25 mg PO BEDTIME [facility] Last Admin: 07/08/17 22:09 Dose: 25 mg Magnesium Hydroxide (Milk Of Magnesia Liq*) 30 ml PO Q4H PRN PRN Reason: CONSTIPATION Metoprolol Tartrate (Lopressor Tab*) 12.5 mg PO Q12HR [facility] Last Admin: 07/08/17 22:09 Dose: Not Given Morphine Sulfate (Morphine Inj (Syringe)*) 2 mg IV Q3H PRN PRN Reason: PAIN Last Admin: 07/08/17 19:43 Dose: 2 mg Ondansetron HCl (Zofran Inj*) 4 mg IV Q6H PRN PRN Reason: NAUSEA/VOMITING Last Admin: 07/07/17 17:15 Dose: 4 mg Oxycodone/Acetaminophen (Percocet 5/325 Tab*) 1 tab PO Q4H PRN PRN Reason: PAIN - MODERATE Oxycodone/Acetaminophen (Percocet 5/325 Tab*) 2 tab PO Q4H PRN PRN Reason: PAIN - SEVERE Last Admin: 07/09/17 08:21 Dose: 2 tab Pantoprazole Sodium (Protonix Tab (Nf)) 40 mg PO DAILY [facility] Last Admin: 07/08/17 09:35 Dose: 40 mg Vital Signs 07/09/17 07/09/17 07:28 08:21 Temperature 98.3 F Pulse Rate 88 Respiratory 16 18 Rate Blood Pressure 106/46 (mmHg) O2 Sat by Pulse 97 Oximetry Oxygen Devices in Use Now: Nasal Cannula Appearance: Elderly male lying in bed in NAD. Eyes: No Scleral Icterus Ears/Nose/Mouth/Throat: Mucous Membranes Moist Neck: Trachea Midline Respiratory: Symmetrical Chest Expansion and Respiratory Effort, Clear to Auscultation Cardiovascular: RRR - Normal S1 and S2 Abdominal: NL Sounds; No Tenderness; No Distention Extremities: - - Good capillary refill, sensation is intact Neurological: Alert and Oriented x 3, NL Muscle Strength and Tone Lines/Tubes/Other Access: Clean, Dry and Intact Peripheral IV Nutrition: Taking PO's Result Diagrams: 07/09/17 05:59 07/09/17 05:59 Assess/Plan/Problems-Billing Assessment: Mr. Damian is an 86yo M with PMH of CVA, HTN, HLD, depression, who presented to ED with c/o right hip pain after a mechanical fall, found to have right femoral neck fracture. - Patient Problems (1) Fracture of femoral neck, right, closed Comment: - S/p right hemiarthroplasty done 07/07/17. - Management as per Ortho. - Continue PT/OT. (2) Acute blood loss anemia Comment: - Suspect patient was hemoconcentrated on admission and had drop due to surgical blood loss. - Continue to monitor H/H - will transfuse if Hb<7.0. 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 - Probably higher now due to stress associated with fall and fracture. - Patient not interested in further w/u, but can continue conversations as outpatient. (4) Hypertension Comment: - Controlled. - Continue Metoprolol. (5) Hyperlipidemia Comment: - Continue statin. (6) H/O: CVA (cerebrovascular accident) Comment: - Continue Plavix. (7) DNR (do not resuscitate) Status and Disposition: Inpatient for surgical management of hip fracture. Anticipate d/c home with VNS in AM.
[2017-07-09] MEDS: Metoprolol Tartrate TAB* 25 MG PO SCH ×2 (08:48→21:29)
[2017-07-09] MEDS: Ferrous Gluconate TAB* 324 MG TAB PO SCH (08:48)
[2017-07-09] MEDS: Cyanocobalamin TAB* 500 MCG PO SCH (08:48)
[2017-07-09] MEDS: Clopidogrel TAB* 75 MG PO SCH (08:48)
[2017-07-09] MEDS: CMCS:Pantoprazole TAB (NF) 40 MG TAB PO SCH (08:50)
--- NOTE | 2017-07-09 08:59 | PN ---
Progress Note - Progress Note Date of Service: 07/09/17 SOAP: Subjective: Pt OOB to chair when complaints of right hip pain, pain controlled with current pain regimen Objective: Vital Signs Temp Pulse Resp BP Pulse Ox 98.3 F 88 18 106/46 97 07/09/17 07:28 07/09/17 07:28 07/09/17 08:21 07/09/17 07:28 07/09/17 07:28 Laboratory Last Values WBC 8.6 10^3/ul (3.5-10.8) 07/09/17 05:59 RBC 2.78 10^6/ul (4.0-5.4) L 07/09/17 05:59 Hgb 8.1 g/dl (14.0-18.0) L 07/09/17 05:59 Hct 24 % (42-52) L 07/09/17 05:59 MCV 86 fL (80-94) 07/09/17 05:59 MCH 29 pg (27-31) 07/09/17 05:59 MCHC 34 g/dl (31-36) 07/09/17 05:59 RDW 15 % (10.5-15) 07/09/17 05:59 Plt Count 618 10^3/ul (150-450) H 07/09/17 05:59 MPV 8 um3 (7.4-10.4) 07/09/17 05:59 Neut % (Auto) 78.6 % (38-83) 07/09/17 05:59 Lymph % (Auto) 8.7 % (25-47) L 07/09/17 05:59 Howell % (Auto) 9.6 % (1-9) H 07/09/17 05:59 Eos % (Auto) 2.5 % (0-6) 07/09/17 05:59 Baso % (Auto) 0.6 % (0-2) 07/09/17 05:59 Absolute Neuts (auto) 6.7 10^3/ul (1.5-7.7) 07/09/17 05:59 Absolute Lymphs (auto) 0.7 10^3/ul (1.0-4.8) L 07/09/17 05:59 Absolute Monos (auto) 0.8 10^3/ul (0-0.8) 07/09/17 05:59 Absolute Eos (auto) 0.2 10^3/ul (0-0.6) 07/09/17 05:59 Absolute Basos (auto) 0.1 10^3/ul (0-0.2) 07/09/17 05:59 Absolute Nucleated RBC 0 10^3/ul 07/09/17 05:59 Nucleated RBC % 0 07/09/17 05:59 INR (Anticoag Therapy) 0.98 (0.89-1.11) 07/06/17 15:36 APTT 38.9 seconds (26.0-36.3) H 07/06/17 15:36 Sodium 135 mmol/L (133-145) D 07/09/17 05:59 Potassium 4.6 mmol/L (3.5-5.0) 07/09/17 05:59 Chloride 102 mmol/L (101-111) 07/09/17 05:59 Carbon Dioxide 30 mmol/L (22-32) 07/09/17 05:59 Anion Gap 3 mmol/L (2-11) 07/09/17 05:59 BUN 19 mg/dL (6-24) 07/09/17 05:59 Creatinine 1.06 mg/dL (0.67-1.17) 07/09/17 05:59 Est GFR ( Amer) 85.6 (>60) 07/09/17 05:59 Est GFR (Non-Af Amer) 66.6 (>60) 07/09/17 05:59 BUN/Creatinine Ratio 17.9 (8-20) 07/09/17 05:59 Glucose 114 mg/dL (70-100) H 07/09/17 05:59 Lactic Acid 1.5 mmol/L (0.5-2.0) 07/06/17 15:36 Calcium 8.5 mg/dL (8.6-10.3) L 07/09/17 05:59 Total Bilirubin 1.00 mg/dL (0.2-1.0) 07/06/17 15:36 AST 44 U/L (13-39) H 07/06/17 15:36 ALT 31 U/L (7-52) 07/06/17 15:36 Alkaline Phosphatase 81 U/L (34-104) 07/06/17 15:36 Troponin I 0.03 ng/mL (<0.04) 07/06/17 15:36 Total Protein 7.7 g/dL (6.4-8.9) 07/06/17 15:36 Albumin 4.5 g/dL (3.2-5.2) 07/06/17 15:36 Globulin 3.2 g/dL (2-4) 07/06/17 15:36 Albumin/Globulin Ratio 1.4 (1-3) 07/06/17 15:36 Urine Color Yellow 07/07/17 00:40 Urine Appearance Clear 07/07/17 00:40 Urine pH 6.0 (5-9) 07/07/17 00:40 Ur Specific Sparks 1.025 (1.010-1.030) 07/07/17 00:40 Urine Protein 1+(30 mg/dl) (Negative) H 07/07/17 00:40 Urine Ketones Negative (Negative) 07/07/17 00:40 Urine Blood 1+ (Negative) H 07/07/17 00:40 Urine Nitrate Negative (Negative) 07/07/17 00:40 Urine Bilirubin Negative (Negative) 07/07/17 00:40 Urine Urobilinogen Negative (Negative) 07/07/17 00:40 Ur Leukocyte Esterase Negative (Negative) 07/07/17 00:40 Urine WBC (Auto) Trace(0-5/hpf) (Absent) 07/07/17 00:40 Urine RBC (Auto) 3+(>10/hpf) (Absent) H 07/07/17 00:40 Urine Bacteria Absent (Absent) 07/07/17 00:40 Urine Glucose Negative (Negative) 07/07/17 00:40 Blood Type O Positive 07/06/17 15:36 Antibody Screen Negative 07/06/17 15:36 incision: c/d; dressing changed P: NVI Assessment: S/P right hip cole; POD#2 Plan: 1) Continue PT/OT- WBAT 2) Plavix/Lovenox for DVT prophylaxis 3) awaiting [facility] approval and transfer
[2017-07-09] MEDS: Atorvastatin* 40 MG TAB PO SCH (17:26)
[2017-07-09] MEDS: lamoTRIgine TAB(*) 100 MG PO SCH (21:30)
[2017-07-09] MEDS: lamoTRIgine TAB(*) 25 MG PO SCH (21:30)
[2017-07-10] MEDS: Enoxaparin(*) 40 MG/0.4 ML SYR SUBCUT SCH (05:46)
[2017-07-10] MEDS: Cyanocobalamin TAB* 500 MCG PO SCH (08:13)
[2017-07-10] MEDS: Ferrous Gluconate TAB* 324 MG TAB PO SCH (08:13)
[2017-07-10] MEDS: Clopidogrel TAB* 75 MG PO SCH (08:13)
[2017-07-10] MEDS: CMCS:Pantoprazole TAB (NF) 40 MG TAB PO SCH (08:13)
[2017-07-10] MEDS: Metoprolol Tartrate TAB* 25 MG PO SCH (08:14)
--- NOTE | 2017-07-10 10:22 | PN ---
Progress Note - Progress Note Date of Service: 07/10/17 SOAP: Subjective: Pt is doing well. Pain is controlled. Lying in bed comfortably. Denies CP, SOB , fever, chills or calf pain. Objective: PE- WDWN M NAD, A&Ox3 RLE- dressing c/d/i, calf soft nontender, +PF/DF ankle, +2 DP pulse, SILT Vital Signs Temp Pulse Resp BP Pulse Ox 98.1 F 80 16 109/50 98 07/10/17 07:30 07/10/17 07:30 07/10/17 08:10 07/10/17 07:30 07/10/17 08:10 Assessment: S/P right hip cole; POD#3 Plan: Continue PT/OT- WBAT Plavix/Lovenox for DVT prophylaxis Cont pain control Stable for DC from an ortho standpoint pending placement Post hip precautions Daily dressing changes with gauze and foam tape. OK to shower. Do not submerge wound F/U with Dr. Mandujano 10-14 days post op
--- NOTE | 2017-07-10 11:27 | DS ---
CC: Dr. Gonzalez; Dr. Mandujano; Kevin DATE OF ADMISSION: 07/06/2017. DATE OF DISCHARGE: 07/10/2017. DISCHARGE DIAGNOSES: 1. Right femoral neck fracture, status post hemiarthropathy on July 07. 2. Acute blood loss anemia secondary to surgery. SECONDARY DIAGNOSES: 1. 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 2. Hypertension. 3. Hyperlipidemia. 4. Depression. 5. Status post appendectomy. 6. Status post prostatectomy. 7. Status post bilateral cataract surgery. 8. Status post tonsillectomy. MEDICATIONS: 1. Acetaminophen 975 mg p.o. q.6 hours prn pain. 2. Oxycodone/acetaminophen 5/325 one to two tablets p.o. q.4 hours prn pain MDD 8. Maximum total ac etaminophen should not exceed 4000 mg. 3. Atorvastatin 40 mg p.o. daily. 4. Clopidogrel 75 mg p.o. daily. 5. Cyanocobalamin 1000 mcg p.o. daily. 6. Lovenox 40 mg subcutaneously daily for 4 weeks. 7. Ferrous Gluconate 325 mg p.o. daily. 8. Lamictal 125 mg p.o. at bedtime. 9. Milk of Magnesia 30 ml p.o. q.4 hours prn constipation. 10. Metoprolol Tartrate 12.5 mg p.o. q.12 hours. 11. Fish oil 1000 mg p.o. daily. 12. Omeprazole 20 mg p.o. daily. HOSPITAL COURSE: Mr. Damian is an 86-year-old male with a past medical history as stated above who presented to the emergency room on July 06 after sustaining a mechanical fall on the day of admission. He was trying to stand up from a chair and was using his cane, but his right leg gave ou t and he fell to his right. For more details about his presentation, I refer you to his history and physical. In the emergency room, hip and pelvis x-ray showed a slightly angulated and impacted right femoral n denice fracture. The patient was admitted for further management. He was seen in consultation by Orthopedics (Dr. Lino) and his impression was the patient presented with a right hip displaced femoral neck fracture and his recommendation was for right hip bipolar hemiarthropathy. He was taken to the OR on July 07 where the above mentioned procedure was performed by Dr. Mandujano. Of note is the fact the patient was noted to have thrombocytosis. He has had thrombocytosis at [facility] since 2014 and his numbers were higher on admission, likely secondary to the stress of fall and fr acture. His numbers are already trending down to his usual baseline. I discussed with the patient the possibility of further work-up, but he has been very clear that he is not interested in any aggr essive or invasive measures. 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 The patient also had leukocytosis on admission, also thought to be secondary to stress. This has be en resolved. He had a hemoglobin of 13 on admission, that is higher than his baseline and I believe he was likely a little hemoconcentrated. This has dropped to a hemoglobin of 8 after surgery second mohit to surgical blood loss, but he has been asymptomatic and has not required blood transfusions. He had no other events on his postop. He did well with physical therapy and was felt to be medicall y stable for discharge today to [facility] to continue his rehabilitation process. PHYSICAL EXAMINATION: General: The patient is a pleasant elderly male, sitting up in bed in no acut e distress. Vital Signs: Temperature 98.1, heart rate 80, respiratory rate 16, oxygen saturation 9 8 percent on room air, blood pressure 109/50. CVS: Normal S1, S2. Regular rate and rhythm. Chest: Breath sounds bilaterally with no added sounds. Abdomen: Soft, bowel sounds are present. Extremi ties: Clean dressing attached to his right hip. The patient has no lower extremity edema. Good ca pillary refill. Good pulses. Sensation is intact. He is able to move all four extremities. Neuro : He alert, awake and oriented time two to self and place. DIET: Regular diet with soft texture. ACTIVITIES: Weightbearing as tolerated on the right lower extremities. Continue PT and OT as vaughn ated. DISPOSITION: To [facility]. STATUS WHILE IN THE HOSPITAL: Inpatient. Please keep in mind this is a summarized version of this patient's hospital stay. If you need more i nformation, please feel free to call me at or please obtain the full medical records. Approximately 45 minutes were spent to complete this discharge. [id number] #: [id number]
[2017-07-10 12:29] VITALS: BP 142/61
== END 2017-07-10 11:50 | DRG 470 ==
LOC: ED 11:50 → SSU 16:51
PROVIDERS: ADMIT Hospitalist; ATTEND Internal Medicine
PROC: 0SRR01A Replacement of Right Hip Joint, Femoral Surface with Metal Synthetic Substitute, Uncemented, Open Approach (ICD-10-PCS; principal; 2017-07-07 11:15)
DX: S72.001A Fracture of unspecified part of neck of right femur, initial encounter for closed fracture (principal); I45.2 Bifascicular block; R47.01 Aphasia; R54 Age-related physical debility; D62 Acute posthemorrhagic anemia; I10 Essential (primary) hypertension; F31.9 Bipolar disorder, unspecified; M21.061 Valgus deformity, not elsewhere classified, right knee; R47.1 Dysarthria and anarthria; D72.828 Other elevated white blood cell count; F12.90 Cannabis use, unspecified, uncomplicated; M17.11 Unilateral primary osteoarthritis, right knee; H91.90 Unspecified hearing loss, unspecified ear; D47.3 Essential (hemorrhagic) thrombocythemia; Z66 Do not resuscitate; K21.9 Gastro-esophageal reflux disease without esophagitis; W17.89XA Other fall from one level to another, initial encounter; E78.5 Hyperlipidemia, unspecified; Z86.73 Personal history of transient ischemic attack (TIA), and cerebral infarction without residual deficits; Z82.3 Family history of stroke; Z72.89 Other problems related to lifestyle; Z90.79 Acquired absence of other genital organ(s); Z83.3 Family history of diabetes mellitus; Z82.49 Family history of ischemic heart disease and other diseases of the circulatory system; Z88.1 Allergy status to other antibiotic agents; Z88.8 Allergy status to other drugs, medicaments and biological substances; Z98.42 Cataract extraction status, left eye; Z98.41 Cataract extraction status, right eye; Z87.891 Personal history of nicotine dependence; Y92.009 Unspecified place in unspecified non-institutional (private) residence as the place of occurrence of the external cause; Z79.02 Long term (current) use of antithrombotics/antiplatelets
CPT/HCPCS: 36415; 71010; 72170; 80048; 80053; 81003; 81015; 83605; 84484; 85014; 85018; 85025; 85027; 85610; 85730; 86850; 86900; 86901; 88305; 88311; 93005; A9270-GY; C1776; J1170; J1644; J1650; J2270; J2405; J2704; J3010

== ENCOUNTER 2017-07-22 21:03 | Inpatient (IN) | payer MEDICARE ==
[2017-07-22 22:08] LABS: Comments Flag Yes; Hematocrit 29 % (42-52); Hemoglobin 9.4 g/dl (14.0-18.0); Mean Corpuscular HGB Conc 32 g/dl (31-36); Mean Corpuscular Hemoglobin 28 pg (27-31); Mean Corpuscular Volume 87 fL (80-94); Mean Platelet Volume 8 um3 (7.4-10.4); Red Blood Count 3.33 10^6/ul (4.0-5.4); Red Cell Distribution Width 15 % (10.5-15); White Blood Count 21.7 10^3/ul (3.5-10.8)
[2017-07-22 22:10] LABS: Add Diff/Slide Review? Slide Review Added
[2017-07-22 22:19] LABS: Albumin 3.7 g/dL (3.2-5.2); EGFR African American 71.4 (>60); EGFR Non-African American 55.5 (>60); Globulin 2.7 g/dL (2-4); Magnesium 2.1 mg/dL (1.9-2.7); Potassium 3.9 mmol/L (3.5-5.0); Total Bilirubin 0.5 mg/dL (0.2-1.0); Total Protein 6.4 g/dL (6.4-8.9)
[2017-07-22 22:20] LABS: Troponin I 0.03 ng/mL (<0.04)
[2017-07-22 22:47] LABS: Immature Granulocytes 3 % (0-9); Myelocytes % 1 % (0-1); Neutrophil % 85 % (38-83); RBC Morphology Normal (Normal)
--- NOTE | 2017-07-22 22:57 | ED ---
Deangelo Mock Rebecca, scribed for Darell Richards MD on 07/22/17 at 2152 . Neurological HPI - HPI Summary HPI Summary: Pt is an 86 y/o M BIBA from [facility] who presents to ED with concerns of the pt being less talkative and having possible seizure, per EMS. EMS report that their staff was concerned that he is conversing less often and not as well as his baseline and that he had "maybe seizure activity." Pt being less talkative has been present all evening today. At approximately 2030 this afternoon (30 minutes [employer]) the staff reported to EMS that he had "possible shaking, just not talking to her well and acting well." Pt denies any pain. En route to [facility], pt had good O2 saturation on RA. - History of Current Complaint Chief Complaint: EDGeneral Stated Complaint: SEIZURES Hx Obtained From: Patient, EMS Onset/Duration: Resolved - 1 episode Number of Seizures: 1 - Possible seizure activity Pain Intensity: 0 Pain Scale Used: 0-10 Numeric Frequency: Episodes x___ - 1 Aggravating: Nothing Alleviating: Nothing - Additional Pertinent History Primary Care Physician: [id number] - Allergy/Home Medications Allergies/Adverse Reactions: Allergies Allergy/AdvReac Type Severity Reaction Status Date / Time Amoxicillin Allergy Unknown Verified 08/25/16 18:37 Reaction Details Celecoxib [From Celebrex] Allergy Unknown Verified 08/25/16 18:37 Reaction Details PMH/Surg Hx/FS Hx/Imm Hx Endocrine/Hematology History: Reports: Hx Anemia Cardiovascular History: Reports: Hx Angina, Hx Hypercholesterolemia, Hx Hypertension Denies: Hx Pacemaker/ICD GI History: Reports: Hx Hiatal Hernia Musculoskeletal History: Reports: Hx Arthritis - right knee, Hx Back Problems - lower back pain, Other Musculoskeletal History - osteoarthritis Sensory History: Reports: Hx Cataracts - bilat cataract extraction, Hx Contacts or Glasses - not with pt, Hx Hearing Problem - UTE, does not wear hearing aides Denies: Hx Hearing Aid Opthamlomology History: Reports: Hx Cataracts - bilat cataract extraction, Hx Contacts or Glasses - not with pt Neurological History: Reports: Other Neuro Impairments/Disorders - expressive aphasia Psychiatric History: Reports: Hx Depression, Hx Bipolar Disorder, Hx Substance Abuse - marijuana and acid, Other Psychiatric Issues/Disorders - bipolar depression Denies: Hx Panic Disorder - Cancer History Cancer Type, Location and Year: Prostate Cancer - Surgical History Surgery Procedure, Year, and Place: Prostatectomy, appendix removed as a child, LEFT FOOT WITH METAL PIN Hx Anesthesia Reactions: No Infectious Disease History: No Infectious Disease History: Denies: Hx of Known/Suspected MRSA, Traveled Outside the [place] in Last 30 Days - Family History Known Family History: Positive: Cardiac Disease, Diabetes - Social History Alcohol Use: Rare Substance Use Type: Reports: Marijuana Substance Use Comment - Amount & Last Used: 5-6 TIMES A WEEK IN PM,2HITS Smoking Status (MU): Light Every Day Tobacco Smoker Type: Pipe Length of Time of Smoking/Using Tobacco: PIPE 1-2 TIMES A DAY, DOES NOT INHALE Have You Smoked in the Last Year: Yes - PIPE ONLY, ONCE OR TWICE A DAY Review of Systems Positive: Other - NEGATIVE: any pain Neurological: Other - Possible serizure activity, less conversive All Other Systems Reviewed And Are Negative: Yes Physical Exam Triage Information Reviewed: Yes Vital Signs On Initial Exam: Initial Vitals BP 128/70 07/22/17 21:14 Vital Signs Reviewed: Yes Appearance: Positive: No Pain Distress, Thin Skin: Positive: Warm Head/Face: Positive: Normal Head/Face Inspection Eyes: Positive: CALLIE ENT: Positive: Hearing grossly normal Neck: Positive: Supple Respiratory/Lung Sounds: Positive: Clear to Auscultation, Breath Sounds Present Cardiovascular: Positive: RRR Abdomen Description: Positive: Nontender, Soft Bowel Sounds: Positive: Present Musculoskeletal: Positive: Strength/ROM Intact Neurological: Positive: Sensory/Motor Intact - Duarte Coma Scale Coma Scale Total: 14 Diagnostics - Vital Signs Vital Signs Temp Pulse Resp BP Pulse Ox 07/22/17 21:24 99.9 F 107 18 128/70 96 07/22/17 21:17 108 22 97 07/22/17 21:14 128/70 - Laboratory Result Diagrams: 07/22/17 21:56 07/22/17 21:56 Lab Statement: Any lab studies that have been ordered have been reviewed, and results considered in the medical decision making process. Course/Dx - Course Assessment/Plan: Pt is an 86 y/o M BIBA from [place] who presents to ED with concerns of the pt being less talkative and having possible seizure, per EMS. EMS report that their staff was concerned that he is conversing less often and not as well as his baseline and that he had "maybe seizure activity." Pt being less talkative has been present all evening today. At approximately 2030 this afternoon (30 minutes [employer]) the staff reported to EMS that he had "possible shaking, just not talking to her well and acting well." Pt denies any pain. En route to [facility], pt had good O2 saturation on RA. WBC of 21.7, lactic acid of 4.0, troponin of 0.03. Discussed care of pt with Dr. John Blanca who accepts pt for admissions. He will be admitted with Dx of UTI. He understands and agrees. - Diagnoses Provider Diagnoses: UTI (urinary tract infection) - Physician Notifications Discussed Care Of Patient With: John Blanca Time Discussed With Above Provider: 00:15 Instructed by Provider To: Admit As Inpatient - Accepts pt for admission Discharge - Discharge Plan Condition: Fair Disposition: ADMITTED TO [facility] The documentation as recorded by the Deangelo patton Rebecca accurately reflects the service I personally performed and the decisions made by me, Darell Richards MD.
[2017-07-23] MEDS ORDERED: cefTRIAXone VIAL(*) 1,000 MG VIAL IVPB ONE (00:30)
[2017-07-23] MEDS ORDERED: NS 0.9% 1000 ML* 1,000 ML IV ONE (00:31)
[2017-07-23] MEDS ORDERED: Magnesium Hydroxide LIQ* 30 ML UDC PO PRN (00:33)
[2017-07-23] MEDS ORDERED: Acetaminophen TAB* 325 MG PO PRN (00:33)
[2017-07-23] MEDS ORDERED: cefTRIAXone(*) 1 GM ADVAN ONE (00:34)
[2017-07-23] MEDS ORDERED: Ondansetron INJ* 2 MG/ML VIAL IV PRN (00:37)
[2017-07-23] MEDS ORDERED: NS 0.9% 1000 ML* 1,000 ML IV SCH (00:45)
--- NOTE | 2017-07-23 02:37 | HP ---
ADMISSION HISTORY AND PHYSICAL: DATE OF ADMISSION: 07/23/17 PRIMARY CARE PROVIDER: Dr. Gonzalez. HEALTHCARE PROXY: Son. CODE STATUS: DNR. MOLST updated. SOURCE OF INFORMATION: History obtained from interview with the sons, review of EMS transfer records. RELIABILITY: Fair. CHIEF COMPLAINT: Seizure-like activity. HISTORY OF PRESENT ILLNESS: This is an 86-year-old man, recent right hemiarthroplasty on 07/07/17 with hospital stay complicated by blood loss anemia in the setting of surgery. Stay lasted from 07/06/17 to 07/10/17 after which time he was discharged to [facility]. The sons see him daily, last seen this morning acting himself. Status post a CVA in 2016. The patient had a significant expressive aphasia as well as progressive dementia and it is difficult to communicate with him, although the sons do indicate they were able to have some meaningful communication and recognized some of the words that he is trying to say, which mostly consist of nouns. Son indicates that over the last couple of days, the patient has been complaining of an inability to urinate , although still has been voiding at [facility]. He complained of constipation, status post procedure. He has had no coughing, shortness of breath, chest pain , nausea, vomiting. He had decreased appetite at [facility], although it is noted because he dislikes the food and the sons have been bringing him food. Over the last 2 to 3 days, the patient has been telling his sons that " something is wrong" and he did not feel right. Today, the patient's sons were coming to visit and they found him being loaded into an ambulance. Review of EMS records indicate that the nurse witnessed "small seizure-like activity." Of note, the patient's sons indicate the patient has significant expressive aphasia at baseline; however, the nursing at [facility] indicated to EMS that at baseline, he speaks clearly and walks around the facility. For this reason, I question some of the validity of the nurses' reports of surrounding event. When seen by this author, the sons think the patient is close to his baseline and his inability to communicate meaningfully with this author. In the emergency room, there was difficulty placing a Velasquez catheter or a straight catheter to obtain a urinary sample. The patient did void, was noted to be foul smelling. A postvoid residual was 150 cc. PAST MEDICAL HISTORY: Includes a history of left posterior MCA, CVA in August 2016, hypertension, hyperlipidemia, depression, thrombocytosis, bipolar disorder. PAST SURGICAL HISTORY: Recent right hemiarthroplasty 07/07/17, appendectomy, prostatectomy, bilateral cataract extraction, tonsillectomy. HOME MEDICATIONS: 1. Percocet 5/325 one to two tabs every 4 hours as needed for pain. 2. Lamictal 125 mg at bedtime. 3. Omeprazole 20 mg daily. 4. Fish oil 1000 mg daily. 5. Metoprolol tartrate 12.5 mg twice daily. 6. Magnesium hydroxide liquid 30 mL every 4 hours as needed for constipation. 7. Ferrous gluconate 324 mg daily. 8. Lovenox 40 mg daily, status post hip surgery. 9. Vitamin B12 1000 mcg daily. 10. Clopidogrel 75 mg daily. 11. Lipitor 40 mg in the evening. 12. Acetaminophen 975 mg every 6 hours as needed for pain. ALLERGIES: To AMOXICILLIN and CELECOXIB. Allergy to AMOXICILLIN is unknown, could not be confirmed by his sons. FAMILY HISTORY: Includes CVA in his father. SOCIAL HISTORY: Former tobacco, quit over 40 years prior. Rare alcohol. 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 Has 3 children. Son, Sam, is the designated healthcare proxy. REVIEW OF SYSTEMS: Difficult to obtain from the patient given his expressive aphasia. Does include sensation of feeling something is wrong as well as difficulty urinating and decreased appetite. Otherwise, unable to obtain. PHYSICAL EXAMINATION GENERAL: An elderly man, sitting up 45 degrees in bed, temporal wasting. VITAL SIGNS: In the emergency room, 133/64, heart rate 95, respiratory rate is 18, 98% on room air, T-max 99.9. HEENT: His oropharynx is clear. He has dry mucous membranes. Sclerae are anicteric. NECK: He has non-elevated JVD. No cervical or supraclavicular lymphadenopathy. LUNGS: Clear to auscultation. HEART: Soft, early peak and systolic ejection murmur. ABDOMEN: Soft, nontender. EXTREMITIES: Warm, well perfused without clubbing, cyanosis or edema. He has a clean incision site without hematoma in his right hip or evidence of infection. NEUROLOGIC: He has expressive aphasia, follows simple commands such as open his mouth. Unable to communicate meaningfully. No apparent anxiety, agitation , or depression. DIAGNOSTIC STUDIES/LAB DATA: Pertinent labs reviewed. White blood cell count 21.7, which is 93.5% neutrophils, hemoglobin 9.4, platelets 1136. BUN 26, creatinine 1.24, lactic acid 4.0. Data reviewed. Chest x-ray, no active cardiopulmonary disease on this author's read. ASSESSMENT AND PLAN: This is an 86-year-old man with past medical history as indicated above including cerebrovascular accident in 2016 complicated by persistent expressive aphasia, dementia, bipolar disorder, presenting with seizure- like activity/change in mental status, associated with foul smelling urine and urinary hesitancy, found with leukocytosis, tachycardia, meeting sepsis criteria. 1. Sepsis, suspect from urinary source. Check blood cultures. I have failed to obtain urine with 2 attempts at straight catheterization. We will attempt again. Currently, not retaining urine. Start ceftriaxone, can broaden if needed. One liter normal saline bolus now and continue 150 cc normal saline. Check blood cultures prior to administration of antibiotics. 2. Thrombocytosis. The patient has baseline thrombocytosis; however, worsens in the setting of suspected infection. Continue to monitor. He is already anticoagulated with prophylaxis Lovenox in the setting of hospital stay and recent surgery. 3. Lactic acidosis in the setting of suspected infection. Repeat now. Has not yet received any crystalloid replacement, will recheck lactic acidosis regardless of current value in the morning. 4. Urinary hesitancy. Bladder scan indicates 150 cc of urine. Continue to trend. Monitor for retention. 5. Bipolar disorder. Continue Lamictal. No history of seizures per sons and they indicate that Lamictal was for history of bipolar disorder. 6. Recent hip surgery. Attention to discharge with Lovenox should be made. The patients typically receive 30 to 35 days at least of Lovenox, status post discharge. His surgery was on the . Therefore, _last day at least until . 7. Code status. DNR. MOLST updated. [id number]/[facility] #: [id number] [facility]
[2017-07-23 03:03] LABS: Urine Bacteria 1+ (Absent); Urine Bilirubin Negative (Negative); Urine Glucose Negative (Negative); Urine Nitrite Positive (Negative)
[2017-07-23 05:32] LABS: Hematocrit 23 % (42-52); Hemoglobin 7.6 g/dl (14.0-18.0); Mean Corpuscular HGB Conc 33 g/dl (31-36); Mean Corpuscular Hemoglobin 29 pg (27-31); Mean Corpuscular Volume 87 fL (80-94); Mean Platelet Volume 8 um3 (7.4-10.4); Red Blood Count 2.65 10^6/ul (4.0-5.4); Red Cell Distribution Width 15 % (10.5-15)
[2017-07-23 05:49] LABS: BUN/Creatinine Ratio 24.7 (8-20); Calcium 6.8 mg/dL (8.6-10.3); EGFR African American 110.4 (>60); EGFR Non-African American 85.9 (>60); Potassium 3.4 mmol/L (3.5-5.0)
--- NOTE | 2017-07-23 07:51 | RAD ---
INDICATION: Fever. COMPARISON: Comparison is made with a prior study from July 06, 2017. TECHNIQUE: A portable view of the chest was obtained. FINDINGS: Cardiac and mediastinal contours appear to be within normal limits. The lungs are underinflated and clear. No pleural effusion is seen. IMPRESSION: NO EVIDENCE FOR ACUTE DISEASE.
[2017-07-23] MEDS: Enoxaparin(*) 40 MG/0.4 ML SYR SUBCUT SCH (08:59)
[2017-07-23] MEDS: Cyanocobalamin TAB* 500 MCG PO SCH (08:59)
[2017-07-23] MEDS: CMCS Pantoprazole TAB (NF) 40 MG TAB PO SCH (09:00)
[2017-07-23] MEDS: Clopidogrel TAB* 75 MG PO SCH (09:00)
[2017-07-23] MEDS: Ferrous Gluconate TAB* 324 MG TAB PO SCH (09:00)
[2017-07-23] MEDS: Metoprolol Tartrate TAB* 25 MG PO SCH ×2 (09:00→21:17)
[2017-07-23] MEDS: oxyCODONE/Acetamin 5/325 MG* TAB PO PRN ×2 (10:30→21:16)
[2017-07-23] MEDS: Atorvastatin* 40 MG TAB PO SCH (17:24)
[2017-07-23] MEDS ORDERED: Potassium Chlor TAB* 20 MEQ TAB.ER PO ONE (18:23)
[2017-07-23] MEDS: lamoTRIgine TAB(*) 100 MG PO SCH (21:17)
[2017-07-23] MEDS: lamoTRIgine TAB(*) 25 MG PO SCH (21:17)
[2017-07-24] MEDS: cefTRIAXone VIAL(*) 1,000 MG in NS 0.9% 50 ML* 50 ML IVPB SCH (01:35)
[2017-07-24 06:19] LABS: Hematocrit 25 % (42-52); Hemoglobin 8.4 g/dl (14.0-18.0); Mean Corpuscular HGB Conc 33 g/dl (31-36); Mean Corpuscular Hemoglobin 28 pg (27-31); Mean Corpuscular Volume 86 fL (80-94); Mean Platelet Volume 8 um3 (7.4-10.4); Red Blood Count 2.95 10^6/ul (4.0-5.4); Red Cell Distribution Width 15 % (10.5-15); White Blood Count 11.5 10^3/ul (3.5-10.8)
[2017-07-24 06:27] LABS: BUN/Creatinine Ratio 20.2 (8-20); Calcium 8.7 mg/dL (8.6-10.3); EGFR African American 87.5 (>60); Potassium 4.3 mmol/L (3.5-5.0)
[2017-07-24] MEDS: Clopidogrel TAB* 75 MG PO SCH (08:50)
[2017-07-24] MEDS: Metoprolol Tartrate TAB* 25 MG PO SCH ×2 (08:50→21:43)
[2017-07-24] MEDS: CMCS Pantoprazole TAB (NF) 40 MG TAB PO SCH (08:50)
[2017-07-24] MEDS: Cyanocobalamin TAB* 500 MCG PO SCH (08:50)
[2017-07-24] MEDS: Enoxaparin(*) 40 MG/0.4 ML SYR SUBCUT SCH (08:50)
[2017-07-24] MEDS: Ferrous Gluconate TAB* 324 MG TAB PO SCH (08:50)
[2017-07-24] MEDS: Atorvastatin* 40 MG TAB PO SCH (17:00)
--- NOTE | 2017-07-24 17:25 | PN ---
Subjective Date of Service: 07/24/17 Interval History: No events. Feels good this morning. He denies any pain. Review of systems is limited by aphasia and dementia, but he does deny dysuria, nausea, diarrhea. Family History: Unchanged from Admission Social History: Unchanged from Admission Past Medical History: Unchanged from Admission Objective Active Medications: Acetaminophen (Tylenol Tab*) 975 mg PO Q6HR PRN PRN Reason: mild pain/fever Atorvastatin Calcium (Lipitor*) 40 mg PO 1700 [facility] Last Admin: 07/24/17 17:00 Dose: 40 mg Clopidogrel Bisulfate (Plavix Tab*) 75 mg PO DAILY [facility] Last Admin: 07/24/17 08:50 Dose: 75 mg Cyanocobalamin (Vitamin B12 Tab*) 1,000 mcg PO DAILY [facility] Last Admin: 07/24/17 08:50 Dose: 1,000 mcg Enoxaparin Sodium (Lovenox(*)) 40 mg SUBCUT Q24H [facility] Last Admin: 07/24/17 08:50 Dose: 40 mg Ferrous Gluconate (Fergon Tab*) 324 mg PO DAILY [facility] Last Admin: 07/24/17 08:50 Dose: 324 mg Ceftriaxone Sodium 1,000 mg/ (Sodium Chloride) 50 mls @ 200 mls/hr IVPB Q24H [facility] Last Admin: 07/24/17 01:35 Dose: 200 mls/hr Lamotrigine (Lamictal Tab(*)) 25 mg PO BEDTIME [facility] Last Admin: 07/23/17 21:17 Dose: 25 mg Lamotrigine (Lamictal Tab(*)) 100 mg PO BEDTIME [facility] Last Admin: 07/23/17 21:17 Dose: 100 mg Magnesium Hydroxide (Milk Of Magnesia Liq*) 30 ml PO Q4H PRN PRN Reason: CONSTIPATION Metoprolol Tartrate (Lopressor Tab*) 12.5 mg PO Q12HR [facility] Last Admin: 07/24/17 08:50 Dose: 12.5 mg Ondansetron HCl (Zofran Inj*) 4 mg IV Q4H PRN PRN Reason: NAUSEA/VOMITING Oxycodone/Acetaminophen (Percocet 5/325 Tab*) 1 tab PO Q4H PRN PRN Reason: Moderate to severe pain Last Admin: 07/23/17 21:16 Dose: 1 tab Pantoprazole Sodium (Protonix Tab (Nf)) 40 mg PO DAILY [facility] Last Admin: 07/24/17 08:50 Dose: 40 mg Vital Signs 07/23/17 07/23/17 07/23/17 19:33 21:16 22:00 Temperature 97.7 F Pulse Rate 85 Respiratory 20 18 18 Rate Blood Pressure 133/56 (mmHg) O2 Sat by Pulse 100 Oximetry 07/23/17 07/23/17 07/24/17 23:16 23:25 00:43 Temperature 97.9 F Pulse Rate 81 Respiratory 18 16 18 Rate Blood Pressure 119/49 (mmHg) O2 Sat by Pulse 100 Oximetry 07/24/17 07/24/17 07/24/17 03:52 07:51 07:57 Temperature 97.9 F 98.3 F Pulse Rate 77 84 Respiratory 16 18 18 Rate Blood Pressure 128/64 128/58 (mmHg) O2 Sat by Pulse 99 98 Oximetry 07/24/17 07/24/17 07/24/17 14:30 14:52 15:49 Temperature 97.9 F 98.3 F Pulse Rate 75 81 Respiratory 18 18 Rate Blood Pressure 123/56 112/56 (mmHg) O2 Sat by Pulse 100 100 Oximetry Oxygen Devices in Use Now: None Appearance: alert, thin, no distress Eyes: No Scleral Icterus, PERRLA Ears/Nose/Mouth/Throat: NL Teeth, Lips, Gums, Clear Oropharnyx Neck: NL Appearance and Movements; NL JVP, Trachea Midline Respiratory: Symmetrical Chest Expansion and Respiratory Effort, Clear to Auscultation Cardiovascular: NL Sounds; No Murmurs; No JVD, RRR, No Edema Abdominal: NL Sounds; No Tenderness; No Distention, No Hepatosplenomegaly, - - no cva tenderness Lymphatic: No Cervical Adenopathy Extremities: No Edema, - - ruthann in right hip; incision clean and dry Neurological: - - expressive aphasia, able to name simple objects, answer yes and no appropriately Result Diagrams: 07/24/17 05:40 07/24/17 05:40 Microbiology and Other Data: Microbiology 07/23/17 02:47 Urine Culture - Preliminary Urine Providencia Rettgeri 07/23/17 00:51 Aerobic Blood Culture - Preliminary Blood Venous No Growth Day 1 Anaerobic Blood Culture - Preliminary No Growth Day 1 07/23/17 00:48 Aerobic Blood Culture - Preliminary Blood Venous No Growth Day 1 Anaerobic Blood Culture - Preliminary No Growth Day 1 07/23/17 01:20 Nasal Screen MRSA (PCR)([facility]) - Final Nasal Mrsa Negative Assess/Plan/Problems-Billing Assessment: 1. Complicated UTI Stable on ceftriaxone. U culture growing providencia; awaiting sensitivities. 2. Disposition. Mr. Damian's family requests that he not go back to [facility]; PT has been consulted to assist with dispo options, awaiting assessment. 3. Recent hip arthroplasty Needs follow up with Dr. Hairston for staple removal. 4. CVA continue plavix/statin 5. Thrombocytosis Continue plavix
[2017-07-24] MEDS: lamoTRIgine TAB(*) 100 MG PO SCH (21:44)
[2017-07-24] MEDS: lamoTRIgine TAB(*) 25 MG PO SCH (21:44)
[2017-07-25] MEDS: cefTRIAXone VIAL(*) 1,000 MG in NS 0.9% 50 ML* 50 ML IVPB SCH (01:52)
[2017-07-25 05:14] LABS: Hematocrit 27 % (42-52); Hemoglobin 9.1 g/dl (14.0-18.0); Mean Corpuscular HGB Conc 34 g/dl (31-36); Mean Corpuscular Hemoglobin 29 pg (27-31); Mean Corpuscular Volume 86 fL (80-94); Mean Platelet Volume 8 um3 (7.4-10.4); Red Blood Count 3.17 10^6/ul (4.0-5.4); Red Cell Distribution Width 15 % (10.5-15); White Blood Count 11.3 10^3/ul (3.5-10.8)
[2017-07-25] MEDS: Clopidogrel TAB* 75 MG PO SCH (09:25)
[2017-07-25] MEDS: Cyanocobalamin TAB* 500 MCG PO SCH (09:25)
[2017-07-25] MEDS: Metoprolol Tartrate TAB* 25 MG PO SCH (09:26)
[2017-07-25] MEDS: Ferrous Gluconate TAB* 324 MG TAB PO SCH (09:26)
[2017-07-25] MEDS: Enoxaparin(*) 40 MG/0.4 ML SYR SUBCUT SCH (09:27)
[2017-07-25] MEDS: CMCS Pantoprazole TAB (NF) 40 MG TAB PO SCH (09:27)
[2017-07-25 13:41] VITALS: BP 105/56
--- NOTE | 2017-07-26 04:59 | DS ---
CC: Dr. Kenney Gonzalez; Dr. Mandujano * DISCHARGE SUMMARY: DATE OF ADMISSION: 07/23/17 DATE OF DISCHARGE: 07/25/17 PRIMARY CARE PROVIDER: Dr. Kenney Gonzalez. DISCHARGING PROVIDER: JOSÉ MIGUEL Bailey SUPERVISING PHYSICIAN: Dr. Claudette Laguerre * (DICTATED BY JOSÉ MIGUEL BAILEY) PRIMARY DISCHARGE DIAGNOSES: 1. Urinary tract infection, complicated, urine culture grew providencia. 2. Recent hip fracture, status post hemiarthroplasty with Dr. Mandujano, . 3. History of cerebrovascular accident and associated expressive aphasia. 4. Thrombocytosis, which is chronic. DISCHARGE MEDICATIONS: 1. Acetaminophen 975 mg p.o. q.6 hours as needed for pain or fever. 2. Eliquis 2.5 mg p.o. b.i.d. x14 days. 3. Atorvastatin 40 mg p.o. daily. 4. Plavix 75 mg p.o. daily. 5. Vitamin B12 1000 mcg p.o. daily. 6. Ferrous gluconate 324 mg p.o. daily. 7. Magnesium hydroxide 30 mL p.o. q.4 hours as needed for constipation. 8. Metoprolol tartrate 12.5 mg p.o. q.12 hours. 9. Fish oil 1000 mg p.o. daily. 10. Omeprazole 20 mg p.o. daily. 11. Ceftin 250 mg p.o. b.i.d. x7 days. 12. Lamictal 125 mg p.o. at bedtime. 13. Percocet 5/325 one to two tablets p.o. q.4 hours as needed for pain. Medication changes: 1. Stop Lovenox. 2. Start Eliquis. 3. Ceftin x7 days. HOSPITAL IMAGING: Chest x-ray shows no acute process. HOSPITAL COURSE: This is an 86-year-old gentleman with history of prior CVA and associated expressive aphasia, who was recently treated for hip fracture, who underwent hemiarthroplasty on 07/07/[address] Mandujano, who presented to the emergency department with complaints of shaking. The patient was noted to have a significant leukocytosis with a white blood cell count of 21,000 as well as significant thrombocytosis with platelet count of 1136. Lactic acid was elevated at 4.0 and evidence of mild acute kidney injury with a creatinine of 1.24 with a baseline closer to 1.0. Urinalysis showed positive nitrites, leuk esterase, white blood cells, red blood cells, and bacteria. The patient was subsequently admitted with concern for urinary tract infection and empirically treated with ceftriaxone. Maximum temperature during the hospital stay was 100.2 degrees Fahrenheit, the night of admission. The patient remained afebrile throughout the remainder of his stay. His white blood cell count trended down as did his platelet count and his complaints of shaking resolved completely. Urine culture eventually grew providencia, but only 10,000 to 20,000 colonies and was resistant to ampicillin, cefazolin, nitrofurantoin, and tetracycline, but sensitivity to ceftriaxone that he had been treated on initially. Blood cultures remained negative. The patient was evaluated by Physical Therapy during his hospital stay and he appears to have met his therapy treatment goals. He had been receiving rehab at [facility] prior to this admission following his hip fracture last month and wished not to return there. Functional status seemed to be such that he could return home where he lives with his son and continue home physical therapy services. I contacted patient's orthopedic surgeon, Dr. Mandujano, during his hospital stay , who wished to see him in followup following discharge for staple removal and repeat hip x-ray. DISPOSITION AND FOLLOWUP PLAN: The patient is being discharged to home where he lives with his son, John. He required 7 additional days of antibiotics as described above. He has a 2:[address] Mandujano this afternoon with plans for staple removal and repeat hip x-ray at that time. The patient has been referred to visiting nurse service and will resume physical therapy via home PT with plans to graduate to an outpatient service. Additional medication changes made as outlined above. The patient will continue on Eliquis for an additional 2 weeks for DVT prophylaxis following his recent hemiarthroplasty. JOSÉ MIGUEL BAILEY [id number]/[facility] #: [id number] MTD[facility]
== END 2017-07-25 14:30 | disposition home or self-care (01) | DRG 689 ==
LOC: ED 21:03 → MED 07-23 00:37
PROVIDERS: ADMIT Internal Medicine; ATTEND Internal Medicine
DX: N39.0 Urinary tract infection, site not specified (principal); A41.9 Sepsis, unspecified organism; E87.2 Acidosis; F03.90 Unspecified dementia, unspecified severity, without behavioral disturbance, psychotic disturbance, mood disturbance, and anxiety; B96.89 Other specified bacterial agents as the cause of diseases classified elsewhere; D47.3 Essential (hemorrhagic) thrombocythemia; Z96.641 Presence of right artificial hip joint; I69.320 Aphasia following cerebral infarction; I10 Essential (primary) hypertension; E78.5 Hyperlipidemia, unspecified; F32.9 Major depressive disorder, single episode, unspecified; F31.9 Bipolar disorder, unspecified; Z79.1 Long term (current) use of non-steroidal anti-inflammatories (NSAID); Z79.899 Other long term (current) drug therapy; Z88.1 Allergy status to other antibiotic agents; Z88.8 Allergy status to other drugs, medicaments and biological substances; Z82.3 Family history of stroke; Z87.891 Personal history of nicotine dependence
CPT/HCPCS: 36415; 71010; 80048; 80053; 81003; 81015; 83605; 83735; 84484; 85025; 87040; 87077; 87086; 87186; 87641; 93005; A9270-GY; J0696; J1650

== ENCOUNTER 2017-11-24 12:29 | Observation (INO) | payer MEDICARE ==
[2017-11-24 13:36] LABS: INR 0.96 (0.77-1.02)
[2017-11-24 13:38] LABS: EGFR Non-African American 65.7 (>60)
--- NOTE | 2017-11-24 14:04 | RAD ---
INDICATION: Seizure. COMPARISON: Comparison is made with a prior CT of the brain from August 25, 2016 and a prior MRI of the brain from August 27, 2016. TECHNIQUE: Contiguous axial sections of the brain were obtained from the skull base to the vertex without contrast. FINDINGS: The ventricles, cisterns and sulci are enlarged consistent with diffuse atrophy. There are multiple focal areas of decreased density in the subcortical and periventricular white matter suggestive of moderate to severe chronic small vessel ischemic changes. There is a focal area of encephalomalacia in the posterior left parietal lobe in the region of a prior infarct. No other focal abnormalities or mass effect are seen. There is no evidence for hemorrhage. No significant focal osseous abnormality is seen. The visualized portion of the paranasal sinuses and mastoid air cells appear clear. IMPRESSION: 1. NO EVIDENCE FOR ACUTE FINDING. 2. MODERATE SIZE AREA OF ENCEPHALOMALACIA IN THE POSTERIOR LEFT PARIETAL LOBE CONSISTENT WITH AN OLD INFARCT. 3. ATROPHY AND MODERATE TO SEVERE CHRONIC SMALL VESSEL ISCHEMIC CHANGES.
[2017-11-24 15:19] LABS: Hematocrit 30 % (42-52); Hemoglobin 10.4 g/dl (14.0-18.0); Mean Corpuscular HGB Conc 35 g/dl (31-36); Mean Corpuscular Hemoglobin 36 pg (27-31); Mean Corpuscular Volume 104 fL (80-94); Mean Platelet Volume 7 um3 (7.4-10.4); Platelet Count 67 10^3/ul (150-450); Red Blood Count 2.87 10^6/ul (4.0-5.4); Red Cell Distribution Width 35 % (10.5-15); White Blood Count 2.8 10^3/ul (3.5-10.8)
[2017-11-24 15:21] LABS: ABS Basophils 0 10^3/ul (0-0.2); ABS Eosinophils 0 10^3/ul (0-0.6); ABS Lymphocytes 0.3 10^3/ul (1.0-4.8); ABS Monocytes 0.1 10^3/ul (0-0.8); ABS Neutrophils 2.4 10^3/ul (1.5-7.7); ABS Nucleated RBC 0 10^3/ul; Eosinophil % 0.6 % (0-6); Lymphocyte % 9.1 % (25-47); Nucleated Red Blood Cells % 0
[2017-11-24] MEDS ORDERED: NS 0.9% 1000 ML* 2,000 ML IV ONE (16:37)
--- NOTE | 2017-11-24 16:41 | RAD ---
INDICATION: Seizure. COMPARISON: Comparison is made with a prior chest x-ray study from July 22, 2017. TECHNIQUE: A portable view of the chest was obtained. FINDINGS: Cardiac and mediastinal contours appear to be within normal limits. The lungs are clear. No pleural effusion is seen. IMPRESSION: NO EVIDENCE FOR ACUTE DISEASE.
[2017-11-24 17:59] LABS: Urine Appearance Clear; Urine Blood 1+ (Negative); Urine Color Yellow; Urine Ketones Negative (Negative); Urine Protein Negative (Negative); Urine Specific Gravity 1.012 (1.010-1.030); Urine Urobilinogen Negative (Negative)
[2017-11-24] MEDS ORDERED: lamoTRIgine TAB(*) 25 MG PO ONE (18:02)
[2017-11-24] MEDS ORDERED: levETIRAcetam TAB* 500 MG PO ONE (18:17)
--- NOTE | 2017-11-24 22:08 | ED ---
Damon Mock Julia, scribed for Arya Haley MD on 11/24/17 at 1836 . Syncope/Near Syncope - HPI Summary HPI Summary: This patient is a 87 year old M BIBA to [facility] accompanied by his son due to a seizure around 12:00 today. Son reports he witnessed patients seizure and administered CPR to get him breathing again. Patient had a second seizure on route. Patient has a history of seizures. Patient is currently unresponsive. - History Of Current Complaint Chief Complaint: EDSeizure Time Seen by Provider: 11/24/17 12:39 Hx Obtained From: Family/College Or University Faculty Member, EMS Hx From Patient Unobtainable Due To: Other - unresponsive Onset/Duration: Still Present Timing: Frequency Of Episodes - 2 Context: Unwitnessed - Allergies/Home Medications Allergies/Adverse Reactions: Allergies Allergy/AdvReac Type Severity Reaction Status Date / Time Amoxicillin Allergy Unknown Verified 08/25/16 18:37 Reaction Details Celecoxib [From Celebrex] Allergy Unknown Verified 08/25/16 18:37 Reaction Details PMH/Surg Hx/FS Hx/Imm Hx Endocrine/Hematology History: Reports: Hx Anemia Cardiovascular History: Reports: Hx Angina, Hx Hypercholesterolemia, Hx Hypertension Denies: Hx Pacemaker/ICD GI History: Reports: Hx Hiatal Hernia Musculoskeletal History: Reports: Hx Arthritis - right knee, Hx Back Problems - lower back pain, Other Musculoskeletal History - osteoarthritis Sensory History: Reports: Hx Cataracts - bilat cataract extraction, Hx Contacts or Glasses - not with pt, Hx Hearing Problem - [place], does not wear hearing aides Denies: Hx Hearing Aid Opthamlomology History: Reports: Hx Cataracts - bilat cataract extraction, Hx Contacts or Glasses - not with pt Neurological History: Reports: Hx Seizures, Other Neuro Impairments/Disorders - expressive aphasia Psychiatric History: Reports: Hx Depression, Hx Bipolar Disorder, Hx Substance Abuse - marijuana and acid, Other Psychiatric Issues/Disorders - bipolar depression Denies: Hx Panic Disorder - Cancer History Cancer Type, Location and Year: Prostate Cancer - Surgical History Surgery Procedure, Year, and Place: Prostatectomy, appendix removed as a child, LEFT FOOT WITH METAL PIN Hx Anesthesia Reactions: No Infectious Disease History: Unable to Obtain/Confirm Infectious Disease History: Denies: Hx of Known/Suspected MRSA, Traveled Outside the [place] in Last 30 Days - Family History Known Family History: Positive: Cardiac Disease, Diabetes - Social History Alcohol Use: unk Alcohol Amount: unk Substance Use Type: Reports: Other Substance Use Comment - Amount & Last Used: unk Hx Tobacco Use: Yes Smoking Status (MU): Smoker, Current Status Unknown Type: Pipe Length of Time of Smoking/Using Tobacco: PIPE 1-2 TIMES A DAY, DOES NOT INHALE Have You Smoked in the Last Year: Yes - PIPE ONLY, ONCE OR TWICE A DAY Review of Systems Negative: Fever Neurological: Other - seizure All Other Systems Reviewed And Are Negative: Yes Physical Exam - Summary Physical Exam Summary: Appearance: The patient is well-nourished in no acute distress and in no acute pain. Skin: The skin is warm and dry and skin color reflects adequate perfusion. HEENT: The head is normocephalic and atraumatic. Eyes are open with pinpoint pupils. The conjunctivae are clear and without drainage. Nares are patent and without drainage. Mouth reveals dry mucous membranes and the throat is without erythema and exudate. The external ears are intact. The ear canals are patent and without drainage. The tympanic membranes are intact. Neck: the neck is supple with full range of motion and non-tender. There are no carotid bruits. There is no neck vein distension. Respiratory: Chest is non-tender. Lungs are clear to auscultation and breath sounds are symmetrical and equal. Cardiovascular: Heart is regular rate and rhythm. There is no murmur or rub auscultated. There is no peripheral edema and pulses are symmetrical and equal. Abdomen: The abdomen is soft and non-tender. There are normal bowel sounds heard in all four quadrants and there is no organomegaly palpated. Musculoskeletal: There is no back tenderness noted. Extremities are non-tender with full range of motion. There is good capillary refill. There is no peripheral edema or calf tenderness elicited. Neurological: Patient is unresponsive. Blink reflex present. Unable to elicit gag reflex. Cranial nerves are grossly intact. Psychiatric: The patient has an appropriate affect and does not exhibit any anxiety or depression. Triage Information Reviewed: Yes Vital Signs On Initial Exam: Initial Vitals Temp Pulse Resp BP Pulse Ox 97.9 F 81 18 131/65 100 11/24/17 12:35 11/24/17 12:35 11/24/17 12:35 11/24/17 12:35 11/24/17 12:35 Vital Signs Reviewed: Yes Diagnostics - Vital Signs Vital Signs Temp Pulse Resp BP Pulse Ox 11/24/17 13:00 128/66 11/24/17 12:42 82 18 100 11/24/17 12:40 118/63 11/24/17 12:35 97.9 F 81 18 131/65 100 - Laboratory Lab Results: Lab Results 11/24/17 11/24/17 11/24/17 Range/Units 13:15 13:15 13:15 INR (Anticoag Therapy) 0.96 (0.77-1.02) Sodium 127 L (133-145) mmol/L Potassium 3.5 (3.5-5.0) mmol/L Chloride 95 L (101-111) mmol/L Carbon Dioxide 23 (22-32) mmol/L Anion Gap 9 (2-11) mmol/L BUN 15 (6-24) mg/dL Creatinine 1.07 (0.67-1.17) mg/dL Est GFR ( Amer) 84.5 (>60) Est GFR (Non-Af Amer) 65.7 (>60) BUN/Creatinine Ratio 14.0 (8-20) Glucose 115 H (70-100) mg/dL Lactic Acid 5.7 H* (0.5-2.0) mmol/L Calcium 8.5 L (8.6-10.3) mg/dL Magnesium 2.0 (1.9-2.7) mg/dL Total Bilirubin 0.60 (0.2-1.0) mg/dL AST 31 (13-39) U/L ALT 26 (7-52) U/L Alkaline Phosphatase 104 (34-104) U/L Troponin I 0.03 (<0.04) ng/mL Total Protein 6.1 L (6.4-8.9) g/dL Albumin 3.6 (3.2-5.2) g/dL Globulin 2.5 (2-4) g/dL Albumin/Globulin Ratio 1.4 (1-3) Result Diagrams: 11/24/17 13:15 11/24/17 13:15 Lab Statement: Any lab studies that have been ordered have been reviewed, and results considered in the medical decision making process. - Radiology CXR Radiology Interpretation Completed By: Radiologist - No acute pathology. ED physician has reviewed this report. - CT Brain CT Interpretation Completed By: Radiologist - Parietal orbital infarct. ED physician has reviewed this report. Course/Dx Course Of Treatment: Mr. Damian presented post ictal after two generalized tonic clonic seizures today. He has no history of seizure. He has an expressive aphasia from a previous CVA. His W/U here revealed a new pancytopenia. He is always a litlle anemic and this is unchanged. He has been trreated for thrombocytosis with hydroxyurea and Dr. Lee feels that this is likely the cause. The reason for his seizure is still obscured. There is no evidence for infection. His son says he is still not acting like his normal self and the hospitalist service has been asked to consult on him. - Diagnoses Provider Diagnoses: Seizures, Pancytopenia - Physician Notifications Discussed Care of Patient With: Matt Lee - recommened to stop hydroxyurea and plavix Time Discussed With Above Provider: 17:40 Instructed by Provider To: Other - Around 18:00 Dr. Davis recommended Keppra Discharge - Discharge Plan Condition: Stable Disposition: HOME Prescriptions: levETIRAcetam TAB* [Keppra TAB*] 500 mg PO BID #20 tab Patient Education Materials: Nonepileptic Seizures (ED) Referrals: Kenney Gonzalez MD [Primary Care Provider] - Additional Instructions: Patient will be discharged with a prescription for Levetiracetam. Patient is instructed to follow up with Dr. Lee this week and Dr. Johnson this week. Patient is instructed to stop hydroxyurea and Plavix. Patient is agreeable with this plan. RETURN TO THE EMERGENCY DEPARTMENT FOR CHANGING OR WORSENING SYMPTOMS. The documentation as recorded by the Damon patton Julia accurately reflects the service I personally performed and the decisions made by , Arya Haley MD.
[2017-11-25] MEDS ORDERED: Acetaminophen TAB* 325 MG PO PRN (02:59)
[2017-11-25] MEDS ORDERED: NS 0.9% 1000 ML* 1,000 ML IV SCH (03:00)
[2017-11-25] MEDS ORDERED: Ondansetron INJ* 2 MG/ML VIAL IV PRN (03:00)
[2017-11-25] MEDS ORDERED: CMCS: Melatonin (NF) 3 MG TAB PO PRN (03:00)
[2017-11-25] MEDS: Omeprazole CAP* 20 MG PO SCH ×2 (04:56→10:04)
[2017-11-25 06:32] LABS: EGFR Non-African American 81.2 (>60)
[2017-11-25 06:37] LABS: ABS Basophils 0 10^3/ul (0-0.2); ABS Eosinophils 0 10^3/ul (0-0.6); ABS Lymphocytes 0.6 10^3/ul (1.0-4.8); ABS Monocytes 0.3 10^3/ul (0-0.8); ABS Neutrophils 2.7 10^3/ul (1.5-7.7); ABS Nucleated RBC 0 10^3/ul; Eosinophil % 0.9 % (0-6); Hematocrit 31 % (42-52); Hemoglobin 10.9 g/dl (14.0-18.0); Mean Corpuscular HGB Conc 35 g/dl (31-36); Mean Corpuscular Hemoglobin 36 pg (27-31); Mean Corpuscular Volume 104 fL (80-94); Mean Platelet Volume 7 um3 (7.4-10.4); Nucleated Red Blood Cells % 0; Platelet Count 68 10^3/ul (150-450); Red Blood Count 3.01 10^6/ul (4.0-5.4); Red Cell Distribution Width 35 % (10.5-15); White Blood Count 3.6 10^3/ul (3.5-10.8)
[2017-11-25] MEDS ORDERED: Magnesium Hydroxide LIQ* 30 ML UDC PO PRN (07:42)
[2017-11-25] MEDS ORDERED: oxyCODONE/Acetamin 5/325 MG* TAB PO PRN (07:42)
--- NOTE | 2017-11-25 07:51 | HP ---
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 Last night he had gone to the bathroom when he became a bit unsteady and his son who isn't present helped him to bed. He then developed generalized convulsions for which EMS was called. En route he had another grand mal seizure despite being on lamotrigine for bipolar disorder. Upon arrival to ED he was post-ictal. There was no reported loss of bowel/bladder. Upon my evaluation he was nearly back to baseline per his other son who had not witnessed the seizure. Shaista Johnson MD neurology was consulted by ED and recommended adding 500mg PO levetiracetam. He will be observed overnight for further seizure activity in order to r/o status. Gary Lee MD consulted by ED for hydroxyurea induced leuko-thombocytopenia for which he recommended D/C of hydroxyurea & clopidogrel. PMedHx L MCA CVA 2015 HTN HLD thrombocytosis prostate CA ([place] 3+3) s/p radical prostatectomy GERD bipolar disorder depression Ambulatory Orders Omeprazole CAP* [Prilosec CAP* 20 MG] 20 mg PO DAILY 04/04/16 Atorvastatin* [Lipitor 40 MG*] 40 mg PO 1700 #30 tab 04/06/16 Clopidogrel TAB* [Plavix TAB*] 75 mg PO DAILY tab 08/30/16 Metoprolol Tartrate TAB* [Lopressor TAB*] 12.5 mg PO Q12HR tab 08/30/16 Cyanocobalamin TAB* [Vitamin B12 TAB*] 1,000 mcg PO DAILY 07/06/17 Ferrous Gluconate TAB* [Fergon TAB*] 324 mg PO DAILY 07/06/17 [place]-3 Fatty Acids [Fish Oil] 1,000 mg PO DAILY 07/06/17 Acetaminophen TAB* [Tylenol TAB*] 975 mg PO Q6HR PRN #0 tab 07/10/17 Magnesium Hydroxide LIQ* [Milk of Magnesia LIQ*] 30 ml PO Q4H PRN #0 udc lamoTRIgine TAB(*) [Lamictal TAB(*)] 25 mg PO BEDTIME tab 07/10/17 lamoTRIgine TAB(*) [Lamictal TAB(*)] 100 mg PO BEDTIME tab 07/10/17 oxyCODONE/Acetamin 5/325 MG* [Percocet 5/325 TAB*] 1 - 2 tab PO Q4H PRN #30 tab MDD 8 07/10/17 Apixaban* [Eliquis] 2.5 mg PO BID #28 tab 07/25/17 ceFUROXime TAB(*) [Ceftin TAB 250 MG(*)] 250 mg PO BID #14 tab 07/25/17 levETIRAcetam TAB* [Keppra TAB*] 500 mg PO BID #20 tab 11/24/17 Allergies Amoxicillin Allergy (Verified 08/25/16 18:37) Unknown Reaction Details Celecoxib [From Celebrex] Allergy (Verified 08/25/16 18:37) Unknown Reaction Details PSurgHx OU cataract extractions tonsillectomy appendectomy prostatectomy R hip cole-arthoplasty SocHx: smokes a pipe 1-2x day denies inhalation, rare alcohol, no recreational drugs; DNR code status FamHx: positive for HTN CVA ROS: as above, otherwise reviewed and all were negative vitals: Vital Signs Temp 36.8 C 11/25/17 03:43 Pulse 60 11/25/17 03:43 Resp 18 11/25/17 03:43 BP 133/62 11/25/17 03:43 Pulse Ox 99 11/25/17 03:43 Intake & Output 11/24/17 11/24/17 11/25/17 11:59 23:59 11:59 Intake Total 0 Balance 0 Weight 74.843 kg 47.899 kg Intake: Oral 0 Other: # Bowel Movements 0 # Voids 0 Constitutional: NAD, normally developed, underweight elderly white male HEENM: atraumatic; sclera/conjunctiva: anicteric ; hearing: clinically mildly decreased; oropharynx: clear, mucosa tacky Neck: soft tissue: non-tender, no nuchal rigidity; thyroid: normal Pulmonary: clear to auscultation bilaterally, good aeration, no accessory muscle use CV: RR/RR, normal S1S2, no carotid bruit, no jugular venous distention, 1+ B DP/ PT, no edema Abdominal: soft, non-distended, non-tender, no rebound/guarding/rigidity, normoactive bowel sounds, no hepatosplenomegaly or masses, no costovertebral angle tenderness Musculoskeletal: general: grossly intact, no tenderness with palpation Integumental: normal appearance and texture of exposed skin Psychiatric orientation: AA&O to PPS affect: calm mood: cooperative eye contact: poor content: difficult to understand, occasionally incoherent, frequently uses the word 'bowl' inappropriately responses: timely insight: fair to poor Testing: Lab Results 11/24/17 11/24/17 11/24/17 Range/Units 13:15 13:15 13:15 WBC 2.8 L (3.5-10.8) 10^3/ul RBC 2.87 L (4.0-5.4) 10^6/ul Hgb 10.4 L (14.0-18.0) g/dl Hct 30 L (42-52) % MCV 104 H (80-94) fL MCH 36 H (27-31) pg MCHC 35 (31-36) g/dl RDW 35 H (10.5-15) % Plt Count 67 L (150-450) 10^3/ul MPV 7 L (7.4-10.4) um3 Neut % (Auto) 85.6 H (38-83) % Lymph % (Auto) 9.1 L (25-47) % [place] % (Auto) 4.4 (1-9) % Eos % (Auto) 0.6 (0-6) % Baso % (Auto) 0.3 (0-2) % Absolute Neuts (auto) 2.4 (1.5-7.7) 10^3/ul Absolute Lymphs (auto) 0.3 L (1.0-4.8) 10^3/ul Absolute Monos (auto) 0.1 (0-0.8) 10^3/ul Absolute Eos (auto) 0 (0-0.6) 10^3/ul Absolute Basos (auto) 0 (0-0.2) 10^3/ul Absolute Nucleated RBC 0 10^3/ul Nucleated RBC % 0 Anisocytosis 3+ Macrocytosis 1+ Acanthocytes (Spur) 2+ INR (Anticoag Therapy) 0.96 (0.77-1.02) Sodium 127 L (133-145) mmol/L Potassium 3.5 (3.5-5.0) mmol/L Chloride 95 L (101-111) mmol/L Carbon Dioxide 23 (22-32) mmol/L Anion Gap 9 (2-11) mmol/L BUN 15 (6-24) mg/dL Creatinine 1.07 (0.67-1.17) mg/dL Est GFR ( Amer) 84.5 (>60) Est GFR (Non-Af Amer) 65.7 (>60) BUN/Creatinine Ratio 14.0 (8-20) Glucose 115 H (70-100) mg/dL Lactic Acid (0.5-2.0) mmol/L Calcium 8.5 L (8.6-10.3) mg/dL Magnesium 2.0 (1.9-2.7) mg/dL Total Bilirubin 0.60 (0.2-1.0) mg/dL AST 31 (13-39) U/L ALT 26 (7-52) U/L Alkaline Phosphatase 104 (34-104) U/L Troponin I 0.03 (<0.04) ng/mL Total Protein 6.1 L (6.4-8.9) g/dL Albumin 3.6 (3.2-5.2) g/dL Globulin 2.5 (2-4) g/dL Albumin/Globulin Ratio 1.4 (1-3) Urine Color Urine Appearance Urine pH (5-9) Ur Specific [place] (1.010-1.030) Urine Protein (Negative) Urine Ketones (Negative) Urine Blood (Negative) Urine Nitrate (Negative) Urine Bilirubin (Negative) Urine Urobilinogen (Negative) Ur Leukocyte Esterase (Negative) Urine WBC (Auto) (Absent) Urine RBC (Auto) (Absent) Urine Bacteria (Absent) Urine Glucose (Negative) 11/24/17 11/24/17 11/25/17 Range/Units 13:15 17:30 06:08 WBC (3.5-10.8) 10^3/ul RBC (4.0-5.4) 10^6/ul Hgb (14.0-18.0) g/dl Hct (42-52) % MCV (80-94) fL MCH (27-31) pg MCHC (31-36) g/dl RDW (10.5-15) % Plt Count (150-450) 10^3/ul MPV (7.4-10.4) um3 Neut % (Auto) (38-83) % Lymph % (Auto) (25-47) % [place] % (Auto) (1-9) % Eos % (Auto) (0-6) % Baso % (Auto) (0-2) % Absolute Neuts (auto) (1.5-7.7) 10^3/ul Absolute Lymphs (auto) (1.0-4.8) 10^3/ul Absolute Monos (auto) (0-0.8) 10^3/ul Absolute Eos (auto) (0-0.6) 10^3/ul Absolute Basos (auto) (0-0.2) 10^3/ul Absolute Nucleated RBC 10^3/ul Nucleated RBC % Anisocytosis Macrocytosis Acanthocytes (Spur) INR (Anticoag Therapy) (0.77-1.02) Sodium 128 L (133-145) mmol/L Potassium 4.1 (3.5-5.0) mmol/L Chloride 96 L (101-111) mmol/L Carbon Dioxide 28 (22-32) mmol/L Anion Gap 4 (2-11) mmol/L BUN 12 (6-24) mg/dL Creatinine 0.89 (0.67-1.17) mg/dL Est GFR ( Amer) 104.5 (>60) Est GFR (Non-Af Amer) 81.2 (>60) BUN/Creatinine Ratio 13.5 (8-20) Glucose 93 (70-100) mg/dL Lactic Acid 5.7 H* (0.5-2.0) mmol/L Calcium 9.2 (8.6-10.3) mg/dL Magnesium (1.9-2.7) mg/dL Total Bilirubin (0.2-1.0) mg/dL AST (13-39) U/L ALT (7-52) U/L Alkaline Phosphatase (34-104) U/L Troponin I (<0.04) ng/mL Total Protein (6.4-8.9) g/dL Albumin (3.2-5.2) g/dL Globulin (2-4) g/dL Albumin/Globulin Ratio (1-3) Urine Color Yellow Urine Appearance Clear Urine pH 6.0 (5-9) Ur Specific [place] 1.012 (1.010-1.030) Urine Protein Negative (Negative) Urine Ketones Negative (Negative) Urine Blood 1+ H (Negative) Urine Nitrate Negative (Negative) Urine Bilirubin Negative (Negative) Urine Urobilinogen Negative (Negative) Ur Leukocyte Esterase Negative (Negative) Urine WBC (Auto) 1+(6-10/hpf) H (Absent) Urine RBC (Auto) 1+(3-5/hpf) H (Absent) Urine Bacteria Absent (Absent) Urine Glucose Negative (Negative) 11/25/17 11/25/17 Range/Units 06:08 06:08 WBC 3.6 (3.5-10.8) 10^3/ul RBC 3.01 L (4.0-5.4) 10^6/ul Hgb 10.9 L (14.0-18.0) g/dl Hct 31 L (42-52) % MCV 104 H (80-94) fL MCH 36 H (27-31) pg MCHC 35 (31-36) g/dl RDW 35 H (10.5-15) % Plt Count 68 L (150-450) 10^3/ul MPV 7 L (7.4-10.4) um3 Neut % (Auto) 74.2 (38-83) % Lymph % (Auto) 17.0 L (25-47) % [place] % (Auto) 7.1 (1-9) % Eos % (Auto) 0.9 (0-6) % Baso % (Auto) 0.8 (0-2) % Absolute Neuts (auto) 2.7 (1.5-7.7) 10^3/ul Absolute Lymphs (auto) 0.6 L (1.0-4.8) 10^3/ul Absolute Monos (auto) 0.3 (0-0.8) 10^3/ul Absolute Eos (auto) 0 (0-0.6) 10^3/ul Absolute Basos (auto) 0 (0-0.2) 10^3/ul Absolute Nucleated RBC 0 10^3/ul Nucleated RBC % 0 Anisocytosis Macrocytosis Acanthocytes (Spur) INR (Anticoag Therapy) (0.77-1.02) Sodium (133-145) mmol/L Potassium (3.5-5.0) mmol/L Chloride (101-111) mmol/L Carbon Dioxide (22-32) mmol/L Anion Gap (2-11) mmol/L BUN (6-24) mg/dL Creatinine (0.67-1.17) mg/dL Est GFR ( Amer) (>60) Est GFR (Non-Af Amer) (>60) BUN/Creatinine Ratio (8-20) Glucose (70-100) mg/dL Lactic Acid 0.8 (0.5-2.0) mmol/L Calcium (8.6-10.3) mg/dL Magnesium (1.9-2.7) mg/dL Total Bilirubin (0.2-1.0) mg/dL AST (13-39) U/L ALT (7-52) U/L Alkaline Phosphatase (34-104) U/L Troponin I (<0.04) ng/mL Total Protein (6.4-8.9) g/dL Albumin (3.2-5.2) g/dL Globulin (2-4) g/dL Albumin/Globulin Ratio (1-3) Urine Color Urine Appearance Urine pH (5-9) Ur Specific [place] (1.010-1.030) Urine Protein (Negative) Urine Ketones (Negative) Urine Blood (Negative) Urine Nitrate (Negative) Urine Bilirubin (Negative) Urine Urobilinogen (Negative) Ur Leukocyte Esterase (Negative) Urine WBC (Auto) (Absent) Urine RBC (Auto) (Absent) Urine Bacteria (Absent) Urine Glucose (Negative) ECG, personally reviewed: 1st degree AV RBBB rate 86, no ischemia CXR, personally reviewed: IMPRESSION: NO EVIDENCE FOR ACUTE DISEASE. CT brain WO, personally reviewed: IMPRESSION: 1. NO EVIDENCE FOR ACUTE FINDING. 2. MODERATE SIZE AREA OF ENCEPHALOMALACIA IN THE POSTERIOR LEFT PARIETAL LOBE CONSISTENT WITH AN OLD INFARCT. 3. ATROPHY AND MODERATE TO SEVERE CHRONIC SMALL VESSEL ISCHEMIC CHANGES. Impression: 87M HX CVA presenting with new onset seizures, r/o status DIAGNOSIS & PLAN Primary new onset seizures, HX L MCA CVA : continue lamotrigine : add levetiracetam 500mg PO BID : telemetry : seizure precautions : EEG in AM : MRI in AM : Shaista Johnson MD neurology consulted, will evaluate in AM : supplemental oxygen : supportive care leuko-thrombocytopenia : HX thrombocytosis : D/C hyroxyurea & clopidogrel : Gary Lee MD hematology/oncology consulted Secondary HTN : review meds once reconciled HLD : review meds once reconciled prostate CA ([place] 3+3) s/p radical prostatectomy : no acute issues : continue outpatient surveillance GERD : review meds once reconciled bipolar disorder : continue lamotrigine Admission Rational: observation for new onset seizure to r/o status DVTp: SCDs, no heparin to avoid potentiating hydroxyurea induced thrombocytopenia Code Status: DNR HCP: sonSam
[2017-11-25] MEDS: ceFUROXime TAB(*) 250 MG PO SCH (10:03)
[2017-11-25] MEDS: Apixaban* 2.5 MG TAB PO SCH (10:03)
[2017-11-25] MEDS: Docusate CAP* 100 MG PO SCH (10:03)
[2017-11-25] MEDS: Metoprolol Tartrate TAB* 25 MG PO SCH (10:04)
[2017-11-25] MEDS: levETIRAcetam TAB* 500 MG PO SCH (10:04)
--- NOTE | 2017-11-25 11:15 | PN ---
Progress Note - Progress Note Date of Service: 11/25/17 SOAP: Subjective: []Feels better today, does not remember seizure. Had been doing well per his report prior to event. Son not at bedside this am, will call. Acetaminophen (Tylenol Tab*) 650 mg PO Q6H PRN PRN Reason: FEVER/PAIN Apixaban (Eliquis) 2.5 mg PO BID [facility] Stop: 12/08/17 21:01 Last Admin: 11/25/17 10:03 Dose: 2.5 mg Atorvastatin Calcium (Lipitor*) 40 mg PO 1700 [facility] Cefuroxime Axetil (Ceftin Tab(*)) 250 mg PO BID [facility] Stop: 12/01/17 21:01 Last Admin: 11/25/17 10:03 Dose: 250 mg Docusate Sodium (Colace Cap*) 200 mg PO BID [facility] Last Admin: 11/25/17 10:03 Dose: 200 mg Sodium Chloride (Ns 0.9% 1000 Ml*) 1,000 mls @ 50 mls/hr IV PER RATE [facility] Last Admin: 11/25/17 04:56 Dose: 50 mls/hr Lamotrigine (Lamictal Tab(*)) 25 mg PO BEDTIME [facility] Lamotrigine (Lamictal Tab(*)) 100 mg PO BEDTIME [facility] Levetiracetam (Keppra Tab*) 500 mg PO BID [facility] Last Admin: 11/25/17 10:04 Dose: 500 mg Magnesium Hydroxide (Milk Of Magnesia Liq*) 30 ml PO Q4H PRN PRN Reason: CONSTIPATION Melatonin (Melatonin (Nf)) 3 mg PO BEDTIME PRN; Protocol PRN Reason: Sleep Metoprolol Tartrate (Lopressor Tab*) 12.5 mg PO Q12HR [facility] Last Admin: 11/25/17 10:04 Dose: 12.5 mg Omeprazole (Prilosec Cap*) 20 mg PO DAILY@0600 [facility] Last Admin: 11/25/17 04:56 Dose: 20 mg Omeprazole (Prilosec Cap*) 20 mg PO DAILY@0730 [facility] Last Admin: 11/25/17 10:04 Dose: 20 mg Ondansetron HCl (Zofran Inj*) 4 mg IV Q6H PRN PRN Reason: NAUSEA Oxycodone/Acetaminophen (Percocet 5/325 Tab*) 1 tab PO Q4H PRN PRN Reason: Moderate to severe pain Objective: [] Vital Signs Temp Pulse Resp BP Pulse Ox 97.9 F 65 14 153/63 100 11/25/17 08:44 11/25/17 08:44 11/25/17 08:44 11/25/17 08:44 11/25/17 08:44 HEENT - PERRL, no oral lesions CTA Irregular S1S2 +BS, NT ND, + spleen 4 cm Ext no c/c/e Laboratory Results - last 24 hr 11/24/17 11/24/17 11/24/17 13:15 13:15 13:15 WBC 2.8 L RBC 2.87 L Hgb 10.4 L Hct 30 L MCV 104 H MCH 36 H MCHC 35 RDW 35 H Plt Count 67 L MPV 7 L Neut % (Auto) 85.6 H Lymph % (Auto) 9.1 L [place] % (Auto) 4.4 Eos % (Auto) 0.6 Baso % (Auto) 0.3 Absolute Neuts (auto) 2.4 Absolute Lymphs (auto) 0.3 L Absolute Monos (auto) 0.1 Absolute Eos (auto) 0 Absolute Basos (auto) 0 Absolute Nucleated RBC 0 Nucleated RBC % 0 Anisocytosis 3+ Macrocytosis 1+ Acanthocytes (Spur) 2+ INR (Anticoag Therapy) 0.96 Sodium 127 L Potassium 3.5 Chloride 95 L Carbon Dioxide 23 Anion Gap 9 BUN 15 Creatinine 1.07 Est GFR ( Amer) 84.5 Est GFR (Non-Af Amer) 65.7 BUN/Creatinine Ratio 14.0 Glucose 115 H Lactic Acid Calcium 8.5 L Magnesium 2.0 Total Bilirubin 0.60 AST 31 ALT 26 Alkaline Phosphatase 104 Troponin I 0.03 Total Protein 6.1 L Albumin 3.6 Globulin 2.5 Albumin/Globulin Ratio 1.4 Urine Color Urine Appearance Urine pH Ur Specific [place] Urine Protein Urine Ketones Urine Blood Urine Nitrate Urine Bilirubin Urine Urobilinogen Ur Leukocyte Esterase Urine WBC (Auto) Urine RBC (Auto) Urine Bacteria Urine Glucose 11/24/17 11/24/17 11/25/17 13:15 17:30 06:08 WBC RBC Hgb Hct MCV MCH MCHC RDW Plt Count MPV Neut % (Auto) Lymph % (Auto) [place] % (Auto) Eos % (Auto) Baso % (Auto) Absolute Neuts (auto) Absolute Lymphs (auto) Absolute Monos (auto) Absolute Eos (auto) Absolute Basos (auto) Absolute Nucleated RBC Nucleated RBC % Anisocytosis Macrocytosis Acanthocytes (Spur) INR (Anticoag Therapy) Sodium 128 L Potassium 4.1 Chloride 96 L Carbon Dioxide 28 Anion Gap 4 BUN 12 Creatinine 0.89 Est GFR ( Amer) 104.5 Est GFR (Non-Af Amer) 81.2 BUN/Creatinine Ratio 13.5 Glucose 93 Lactic Acid 5.7 H* Calcium 9.2 Magnesium Total Bilirubin AST ALT Alkaline Phosphatase Troponin I Total Protein Albumin Globulin Albumin/Globulin Ratio Urine Color Yellow Urine Appearance Clear Urine pH 6.0 Ur Specific [place] 1.012 Urine Protein Negative Urine Ketones Negative Urine Blood 1+ H Urine Nitrate Negative Urine Bilirubin Negative Urine Urobilinogen Negative Ur Leukocyte Esterase Negative Urine WBC (Auto) 1+(6-10/hpf) H Urine RBC (Auto) 1+(3-5/hpf) H Urine Bacteria Absent Urine Glucose Negative 11/25/17 11/25/17 06:08 06:08 WBC 3.6 RBC 3.01 L Hgb 10.9 L Hct 31 L MCV 104 H MCH 36 H MCHC 35 RDW 35 H Plt Count 68 L MPV 7 L Neut % (Auto) 74.2 Lymph % (Auto) 17.0 L [place] % (Auto) 7.1 Eos % (Auto) 0.9 Baso % (Auto) 0.8 Absolute Neuts (auto) 2.7 Absolute Lymphs (auto) 0.6 L Absolute Monos (auto) 0.3 Absolute Eos (auto) 0 Absolute Basos (auto) 0 Absolute Nucleated RBC 0 Nucleated RBC % 0 Anisocytosis Macrocytosis Acanthocytes (Spur) INR (Anticoag Therapy) Sodium Potassium Chloride Carbon Dioxide Anion Gap BUN Creatinine Est GFR ( Amer) Est GFR (Non-Af Amer) BUN/Creatinine Ratio Glucose Lactic Acid 0.8 Calcium Magnesium Total Bilirubin AST ALT Alkaline Phosphatase Troponin I Total Protein Albumin Globulin Albumin/Globulin Ratio Urine Color Urine Appearance Urine pH Ur Specific [place] Urine Protein Urine Ketones Urine Blood Urine Nitrate Urine Bilirubin Urine Urobilinogen Ur Leukocyte Esterase Urine WBC (Auto) Urine RBC (Auto) Urine Bacteria Urine Glucose Assessment: []87 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 Presents with seizure and bowman-cytopenia on Hydroxyurea 500 mg daily. Plan: []1. Necrology evaluation pending, on keppra 2. Hold HU and will follow up in clinic, re-start at 500 mg TIW if thrombocytosis recurs.
--- NOTE | 2017-11-25 16:01 | RAD ---
HISTORY: Prostate cancer, seizure COMPARISONS: Head CT dated November 24, 2017 TECHNIQUE: The following sequences were obtained of the head: Sagittal T1-weighted images, axial T2-weighted images, axial FLAIR images, axial susceptibility weighted images, axial T1-weighted images, coronal T1, T2 and FLAIR images through the mesial temporal lobes. Additionally, axial diffusion-weighted images were obtained with calculated apparent diffusion coefficients. FINDINGS: HEMORRHAGE/INFARCT: There is no hemorrhage or acute infarct. MASSES/SHIFT: There is no mass or shift. EXTRA-AXIAL SPACES/MENINGES: There are no extra-axial fluid collections. SULCI AND VENTRICLES: There is diffuse and proportional enlargement of the sulci and ventricles. There is ex vacuo dilatation of the occipital and temporal horns of the left lateral ventricle. CEREBRUM: There is diffuse confluent elevated T2/FLAIR signal in the periventricular and subcortical white matter. There is encephalomalacia involving the left posterior temporal and inferior parietal lobe. There is associated volume loss of the left mesial temporal lobe. BRAINSTEM: There is Wallerian degeneration degeneration involving the left cerebral peduncle and abimael. CEREBELLUM: There are no focal parenchymal abnormalities. The cerebellar tonsils are normal in size and position. SELLA: The sella is normal. PINEAL: The pineal region is clear. CP ANGLE/TEMPORAL BONES: The labyrinthine structures are grossly normal. VESSELS: Normal flow-voids are noted within the visualized vertebral vasculature. DIFFUSION ABNORMALITIES: There are no diffusion abnormalities. PARANASAL SINUSES/MASTOIDS: The paranasal sinuses are clear. ORBITS: The orbits are unremarkable. BONES AND SOFT TISSUE: No bone or soft tissue abnormalities are noted. OTHER: None IMPRESSION: 1. 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 2. DIFFUSELY ELEVATED T2/FLAIR SIGNAL IN THE PERIVENTRICULAR AND SUBCORTICAL WHITE MATTER SUGGESTING CHRONIC SMALL VESSEL ISCHEMIA.
[2017-11-25] MEDS ORDERED: Atorvastatin* 40 MG TAB PO SCH (17:00)
--- NOTE | 2017-11-25 19:42 | PN ---
Subjective Date of Service: 11/25/17 Interval History: Alert to name, Denies chest pain, Shortness of breath or abd pain. Denies N/V/D Family History: Unchanged from Admission Social History: Unchanged from Admission Past Medical History: Unchanged from Admission Objective Active Medications: Acetaminophen (Tylenol Tab*) 650 mg PO Q6H PRN PRN Reason: FEVER/PAIN Apixaban (Eliquis) 2.5 mg PO BID [facility] Stop: 12/08/17 21:01 Last Admin: 11/25/17 10:03 Dose: 2.5 mg Atorvastatin Calcium (Lipitor*) 40 mg PO 1700 [facility] Last Admin: 11/25/17 17:17 Dose: 40 mg Cefuroxime Axetil (Ceftin Tab(*)) 250 mg PO BID [facility] Stop: 12/01/17 21:01 Last Admin: 11/25/17 10:03 Dose: 250 mg Docusate Sodium (Colace Cap*) 200 mg PO BID [facility] Last Admin: 11/25/17 10:03 Dose: 200 mg Sodium Chloride (Ns 0.9% 1000 Ml*) 1,000 mls @ 50 mls/hr IV PER RATE [facility] Last Admin: 11/25/17 04:56 Dose: 50 mls/hr Lamotrigine (Lamictal Tab(*)) 25 mg PO BEDTIME [facility] Lamotrigine (Lamictal Tab(*)) 100 mg PO BEDTIME [facility] Levetiracetam (Keppra Tab*) 500 mg PO BID [facility] Last Admin: 11/25/17 10:04 Dose: 500 mg Magnesium Hydroxide (Milk Of Magnesia Liq*) 30 ml PO Q4H PRN PRN Reason: CONSTIPATION Melatonin (Melatonin (Nf)) 3 mg PO BEDTIME PRN; Protocol PRN Reason: Sleep Metoprolol Tartrate (Lopressor Tab*) 12.5 mg PO Q12HR [facility] Last Admin: 11/25/17 10:04 Dose: 12.5 mg Omeprazole (Prilosec Cap*) 20 mg PO DAILY@0600 [facility] Last Admin: 11/25/17 04:56 Dose: 20 mg Omeprazole (Prilosec Cap*) 20 mg PO DAILY@0730 [facility] Last Admin: 11/25/17 10:04 Dose: 20 mg Ondansetron HCl (Zofran Inj*) 4 mg IV Q6H PRN PRN Reason: NAUSEA Oxycodone/Acetaminophen (Percocet 5/325 Tab*) 1 tab PO Q4H PRN PRN Reason: Moderate to severe pain Oxygen Devices in Use Now: None Appearance: alert to verbal, confused , pleasent Eyes: No Scleral Icterus Ears/Nose/Mouth/Throat: Clear Oropharnyx, Mucous Membranes Moist Neck: NL Appearance and Movements; NL JVP, Trachea Midline Respiratory: Symmetrical Chest Expansion and Respiratory Effort, Clear to Auscultation Cardiovascular: NL Sounds; No Murmurs; No JVD, RRR, No Edema Abdominal: NL Sounds; No Tenderness; No Distention Extremities: No Edema, No Clubbing, Cyanosis Skin: No Rash or Ulcers Neurological: - - confused to place and time, pt has some expressive aphasia Nutrition: Taking PO's Result Diagrams: 11/26/17 06:00 11/26/17 06:00 Additional Lab and Data: Lab Results 11/24/17 11/24/17 11/24/17 Range/Units 13:15 13:15 13:15 INR (Anticoag Therapy) 0.96 (0.77-1.02) Sodium 127 L (133-145) mmol/L Potassium 3.5 (3.5-5.0) mmol/L Chloride 95 L (101-111) mmol/L Carbon Dioxide 23 (22-32) mmol/L Anion Gap 9 (2-11) mmol/L BUN 15 (6-24) mg/dL Creatinine 1.07 (0.67-1.17) mg/dL Est GFR ( Amer) 84.5 (>60) Est GFR (Non-Af Amer) 65.7 (>60) BUN/Creatinine Ratio 14.0 (8-20) Glucose 115 H (70-100) mg/dL Lactic Acid 5.7 H* (0.5-2.0) mmol/L Calcium 8.5 L (8.6-10.3) mg/dL Magnesium 2.0 (1.9-2.7) mg/dL Total Bilirubin 0.60 (0.2-1.0) mg/dL AST 31 (13-39) U/L ALT 26 (7-52) U/L Alkaline Phosphatase 104 (34-104) U/L Troponin I 0.03 (<0.04) ng/mL Total Protein 6.1 L (6.4-8.9) g/dL Albumin 3.6 (3.2-5.2) g/dL Globulin 2.5 (2-4) g/dL Albumin/Globulin Ratio 1.4 (1-3) Assess/Plan/Problems-Billing Assessment: This is an 87 y.o male that carries a history of CVA, HTN, hyperlipidemia, depression, thrombocytosis expressive aphasia related to CVA. presented to the emergency room for seizures. Patient seen and evaluated by Dr. Yin. Patient will be discharged. - Patient Problems (1) CAD (coronary artery disease) Status: Acute Code(s): I25.10 - ATHSCL HEART DISEASE OF [place] CORONARY ARTERY W/O ANG PCTRS SNOMED Code(s): 69039934 Comment: No c/o of chest pain- stable (2) DVT prophylaxis Status: Acute Priority: Low Code(s): MLZ6204 - SNOMED Code(s): 965406873 Comment: SCD's heparin held d/t thrombocytopenia (3) Aphasia complicating stroke Status: Acute Priority: High Code(s): I63.9 - CEREBRAL INFARCTION, UNSPECIFIED; R47.01 - APHASIA SNOMED Code(s): 45884282 Comment: history of aphasia with prior CVA,- unchanged (4) Hypertension Status: Chronic Priority: Medium Code(s): I10 - ESSENTIAL (PRIMARY) HYPERTENSION SNOMED Code(s): 76123866 Comment: - Controlled. - Continue Metoprolol. (5) Hyperlipidemia Status: Chronic Priority: Medium Code(s): E78.5 - HYPERLIPIDEMIA, UNSPECIFIED SNOMED Code(s): 93511904 Comment: - Continue statin. (6) Depression Status: Acute Code(s): F32.9 - MAJOR DEPRESSIVE DISORDER, SINGLE EPISODE, UNSPECIFIED SNOMED Code(s): 66886944 Comment: Continue lamictal. (7) H/O: CVA (cerebrovascular accident) Status: Acute Code(s): Z86.73 - PRSNL HX OF TIA (TIA), AND CEREB INFRC W/O RESID DEFICITS SNOMED Code(s): 531549175 Comment: Plavix d/c'd d/t thrombocytopenia (8) DNR (do not resuscitate) Status: Acute (9) Seizure Status: Acute Code(s): R56.9 - UNSPECIFIED CONVULSIONS SNOMED Code(s): 31883364 Comment: start Keppra 500 mg po BID Follow up with Dr. Johnson in 1 month (10) Thrombocytopenia Status: Acute Code(s): D69.6 - THROMBOCYTOPENIA, UNSPECIFIED SNOMED Code(s) : 682454844 Comment: stop hydroxyurea stop plavix repeat cbc in 1 week Status and Disposition: Patient discharge cancelled d/t fall
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
[2017-11-25] MEDS ORDERED: lamoTRIgine TAB(*) 100 MG PO SCH (21:00)
[2017-11-25] MEDS ORDERED: lamoTRIgine TAB(*) 25 MG PO SCH (21:00)
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
--- NOTE | 2017-11-25 21:38 | RAD ---
HISTORY: Trauma, and witnessed fall COMPARISONS: None TECHNIQUE: Multiple contiguous axial CT scans were obtained of the cervical spine without intravenous contrast, with coronal and sagittal multiplanar reformations. FINDINGS: BRAIN: The visualized brain is unremarkable CENTRAL CANAL: Evaluation of the central canal is limited on CT technique; however, there is no obvious canalicular mass or epidural hemorrhage. ALIGNMENT: The alignment is normal, without subluxation or dislocation. VERTEBRAL BODIES: There is diffuse osteopenia. Is multilevel anterolateral marginal osteophyte formation. There is no displaced fracture or dislocation. JOINTS: There is a vertebral and facet osteoarthritis. MUSCULATURE: Unremarkable INTERVERTEBRAL DISCS: There is diffuse loss of intervertebral disc height. AXIAL IMAGES: On axial images, there is diffuse mild to moderate narrowing of the neural foramina. There is no osseous central canal stenosis. SOFT TISSUES: The visualized soft tissues of the neck are unremarkable. The prevertebral fat stripe is preserved. OTHER: None. IMPRESSION: OSTEOPENIA. DEGENERATIVE DISC DISEASE AND OSTEOARTHRITIS. NO ACUTE OSSEOUS INJURY TO THE CERVICAL SPINE
--- NOTE | 2017-11-25 21:39 | CONS ---
NEUROLOGY CONSULTATION: DATE OF CONSULT: 11/25/17 LOCATION: He is an inpatient in room 451. REFERRING PHYSICIAN: Dr. Thomas. PRIMARY CARE PROVIDER: Dr. Gonzalez. CHIEF COMPLAINT: Seizure. HISTORY OF PRESENT ILLNESS: Shubham Damian is an 87-year-old man who was at his home yesterday when one of his care providers who is present today said that he started to act more confused than usual. He had been brushing his teeth and doing his morning hygiene and he started to drool. His aide asked him what was the problem and tried to sit him down, but he noticed that his right arm was stiff. He tried to get him on his walker to get to some place safer, but he could not get his right hand on to the walker where he said been using his left fine. He was talking initially, but ultimately his whole body stiffened and he was eased to the ground. There were no jerking movements, but just tonic spasms and his eyes remained open and he was unresponsive and nonverbal. This went on for several minutes and after that he was flaccid, limp. His eyes remained open, but he did not respond to voice and an ambulance was summoned. He was brought into the emergency room and he had a convulsion in the ambulance according to ER records. In the emergency room, he was described as "postictal." Since then, he is recovered and his family feels he is back at his baseline. He is on lamotrigine 125 mg at bedtime for bipolar affective disorder. His son who is also present said that he may have had a seizure in last September when he was septic. He was brought to the hospital I believe from a rehab stay and apparently there is some convulsive activity. Reviewing the hospital records, this was actually July 23 when he was admitted with "seizure-like activity." He was in rehab recuperating from a right hip hemiarthroplasty. 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 He was seen by Dr. Darell Sheridan in consultation at that point in time and he was put on Plavix and remained on a statin. PAST MEDICAL HISTORY: Significant for bipolar disorder, dementia which may be vascular at least in part, history of left middle cerebral artery stroke, left hip replacement, hypertension, dyslipidemia, essential thrombocytosis treated with hydroxyurea, prostate cancer status post prostatectomy, gastroesophageal reflux. MEDICATIONS: At admission consist of: 1. Atorvastatin 40 mg p.o. daily. 2. Plavix 75 mg p.o. daily. 3. Metoprolol 12.5 mg p.o. b.i.d. 4. B12 1000 mcg p.o. daily. 5. Ferrous gluconate 324 mg p.o. daily. 6. Lamotrigine 125 mg p.o. q.h.s. 7. Eliquis 2.5 mg p.o. b.i.d. ALLERGIES: He said to be allergic to AMOXICILLIN with unknown reaction as well as to CELECOXIB with unknown reaction. REVIEW OF SYSTEMS: From the patient is negative for headache. He knows he came to the hospital yesterday, but he cannot really give a coherent description. He tends to sit quietly with his eyes closed, but immediately respond in a loud voice when questions asked directly to him. He has had cataracts out. His weight is stable. He uses a walker at home. He has at least 2 caregivers at home. He smokes a pipe. He does not drink alcohol. FAMILY HISTORY: Noncontributory. PHYSICAL EXAMINATION: On physical examination, he is a thin elderly gentleman, sitting quietly in his hospital bed with a head on. His eyes are closed, but he responds immediately to any questions. Most recent temperature 98.3 orally, blood pressure is running generally about 130 to 150 systolic/60s diastolic, heart rates in the 60s and regular, and respiratory rate 16. Oxygen saturation is 100% on room air. Oral mucosa is moist and there is no oral trauma. He is edentulous. Neurologically, pupils react equally from 3 to 2 mm. Eye movements are full, but I tried to get him to track. His behavior is somewhat erratic and he tends to perform motor movements and commands repetitively and spontaneously. He moves his upper extremities briskly and strongly, but I cannot get him to do finger taps or [id number]. He raises both legs to command strongly and quickly. There is no myoclonus or asterixis. Funduscopic exam is normal bilaterally. Tongue protrudes in the midline and palate rises symmetrically. Plantar responses are flexor bilaterally. He has a spastic catch in the right leg. DIAGNOSTIC STUDIES/LAB DATA: Laboratory data includes a CT of the brain, which I reviewed and reveals encephalomalacia in the left temporoparietal area consistent with an old infarction. EKG unremarkable. Laboratory studies notable for unremarkable urinalysis, chemistry profile with a sodium of 127 yesterday, 128 today. Chemistry profile otherwise unremarkable, lactic acid was 5.7 yesterday. INR normal at 0.96. CBC notable for decreased white blood cell count 2.8 yesterday, up to 3.6 today. Hemoglobin 10.4 yesterday, 10.9 today; platelet count 67,000 yesterday, 68,000 today. 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 As best as I can tell and speak with the family, he is at his baseline. His Plavix has been stopped because of his thrombocytopenia and Dr. Lee has been consulted and will follow up as an outpatient. Hydroxyurea has been stopped. We talked about increasing lamotrigine with the family. I spoke with Dr. Haley about a last night as well. His family says he does very poorly and increased doses of lamotrigine becoming agitated and they did not want to increase it. We went ahead and started Keppra and I warned them potential side effects of Keppra including agitation, irritability, mood changes. I told him if that does not effectively controlled his seizures without side effects, then we would have to consider alternatives. Valproic acid would be a good choice for the patient with bipolar disorder, but not with his low platelet count. For now , we will continue Keppra 500 mg b.i.d. His MRI pending to make sure he has not had another cerebrovascular event and if that is negative, I think he could be discharged home to his family where he has a 24-hour daycare. [id number]/[facility] #: [id number] [facility]
--- NOTE | 2017-11-25 21:42 | PN ---
Progress Note - Progress Note Date of Service: 11/25/17 Note: laceration repair by Candi VALDEZ has 3cm by 1/4cm laceration of scalp cleaned area with saline 100cc used lidocaine with epi 1/2cc local ruthann 3 applied to area
[2017-11-25] MEDS ORDERED: Lidocaine 1% MPF wEPI 200,000* 30 ML SDV INJ ONE (22:00)
[2017-11-26] MEDS: Docusate CAP* 100 MG PO SCH ×2 (00:03→09:18)
[2017-11-26] MEDS: Metoprolol Tartrate TAB* 25 MG PO SCH ×2 (00:04→09:18)
[2017-11-26] MEDS: levETIRAcetam TAB* 500 MG PO SCH ×2 (00:04→09:17)
[2017-11-26] MEDS: ceFUROXime TAB(*) 250 MG PO SCH (00:47)
[2017-11-26] MEDS: Apixaban* 2.5 MG TAB PO SCH (00:48)
[2017-11-26] MEDS: Omeprazole CAP* 20 MG PO SCH ×2 (05:05→07:49)
[2017-11-26 06:31] LABS: EGFR Non-African American 79.2 (>60)
[2017-11-26 07:20] LABS: Hematocrit 31 % (42-52); Hemoglobin 10.8 g/dl (14.0-18.0); Mean Corpuscular HGB Conc 35 g/dl (31-36); Mean Corpuscular Hemoglobin 37 pg (27-31); Mean Corpuscular Volume 104 fL (80-94); Mean Platelet Volume 7 um3 (7.4-10.4); Platelet Count 70 10^3/ul (150-450); Red Blood Count 2.96 10^6/ul (4.0-5.4); Red Cell Distribution Width 35 % (10.5-15); White Blood Count 4.2 10^3/ul (3.5-10.8)
[2017-11-26 07:26] LABS: ABS Basophils 0 10^3/ul (0-0.2); ABS Eosinophils 0.1 10^3/ul (0-0.6); ABS Lymphocytes 0.8 10^3/ul (1.0-4.8); ABS Monocytes 0.3 10^3/ul (0-0.8); ABS Nucleated RBC 0 10^3/ul; Eosinophil % 1.5 % (0-6); Lymphocyte % 18.8 % (25-47); Nucleated Red Blood Cells % 0
--- NOTE | 2017-11-26 14:47 | EEG ---
ELECTROENCEPHALOGRAPHY: DATE OF STUDY: 11/25/17 REFERRING PHYSICIAN: Dr. Thomas. LOCATION: He is an inpatient in room 451. CLINICAL PROBLEM: History of left hemisphere stroke, seizure the night of admission. MEDICATIONS: Include: 1. Lamotrigine. 2. Keppra. 3. Zofran. 4. Prilosec. REPORT: This 16-channel EEG is remarkable for background rhythms consisting of fairly rhythmic alpha activity from the right occipital derivations which is barely 8 cycles per second, sometimes close t o 6 cycles per second. There is a low- abundant poorly formed, more theta range rhythm seen in the l eft occipital derivation. The patient is clinically awake. Rhythmic central theta and some delta ra nge frequencies at about 4 cycles per second are seen episodically suggestive of drowsiness. Beta ac tivity is seen bifrontally. Activation procedures are not attempted. Muscle and movement artifacts are seen occasionally. The patient does not appear to sleep during the recording. CLINICAL IMPRESSION: Abnormal EEG due to asymmetry of background rhythms with slower rhythms noted f rom the left hemisphere. This is compatible with left hemisphere dysfunction and could be representa tive of prior cerebrovascular disease or postictal state. There are no epileptiform discharges durin g this recording. [id number]/[facility] #: [id number]
[2017-11-26 15:03] VITALS: BP 139/69
--- NOTE | 2017-11-26 17:05 | PN ---
Subjective Date of Service: 11/26/17 Interval History: no complaints, patient with expressive aphasia, Denies answer some questions appropriately. follows commands. Denies shortness of breath, denies cp or abd pain, denies N/V/D Family History: Unchanged from Admission Social History: Unchanged from Admission Past Medical History: Unchanged from Admission Objective Vital Signs - 8 hr 11/26/17 11:21 Temperature 98.4 F Pulse Rate 65 Respiratory 14 Rate Blood Pressure 139/69 (mmHg) O2 Sat by Pulse 100 Oximetry Oxygen Devices in Use Now: None Appearance: alert, pleasent, appears comfortable Eyes: No Scleral Icterus Ears/Nose/Mouth/Throat: Clear Oropharnyx, Mucous Membranes Moist Neck: NL Appearance and Movements; NL JVP, Trachea Midline Respiratory: Symmetrical Chest Expansion and Respiratory Effort, Clear to Auscultation Cardiovascular: NL Sounds; No Murmurs; No JVD, RRR, No Edema Abdominal: NL Sounds; No Tenderness; No Distention Extremities: No Edema, No Clubbing, Cyanosis Skin: No Rash or Ulcers Neurological: NL Muscle Strength and Tone, - - confused to place and time Nutrition: Taking PO's Result Diagrams: 11/26/17 06:00 11/26/17 06:00 Additional Lab and Data: Lab Results 11/24/17 11/24/17 11/24/17 Range/Units 13:15 13:15 13:15 INR (Anticoag Therapy) 0.96 (0.77-1.02) Sodium 127 L (133-145) mmol/L Potassium 3.5 (3.5-5.0) mmol/L Chloride 95 L (101-111) mmol/L Carbon Dioxide 23 (22-32) mmol/L Anion Gap 9 (2-11) mmol/L BUN 15 (6-24) mg/dL Creatinine 1.07 (0.67-1.17) mg/dL Est GFR ( Amer) 84.5 (>60) Est GFR (Non-Af Amer) 65.7 (>60) BUN/Creatinine Ratio 14.0 (8-20) Glucose 115 H (70-100) mg/dL Lactic Acid 5.7 H* (0.5-2.0) mmol/L Calcium 8.5 L (8.6-10.3) mg/dL Magnesium 2.0 (1.9-2.7) mg/dL Total Bilirubin 0.60 (0.2-1.0) mg/dL AST 31 (13-39) U/L ALT 26 (7-52) U/L Alkaline Phosphatase 104 (34-104) U/L Troponin I 0.03 (<0.04) ng/mL Total Protein 6.1 L (6.4-8.9) g/dL Albumin 3.6 (3.2-5.2) g/dL Globulin 2.5 (2-4) g/dL Albumin/Globulin Ratio 1.4 (1-3) Assess/Plan/Problems-Billing Assessment: This is an 87 y.o male that carries a history of CVA, HTN, hyperlipidemia, depression, thrombocytosis expressive aphasia related to CVA. presented to the emergency room for seizures. Patient seen and evaluated by Dr. Yin. Patient will be discharged. - Patient Problems (1) CAD (coronary artery disease) Status: Acute Code(s): I25.10 - ATHSCL HEART DISEASE OF [place] CORONARY ARTERY W/O ANG PCTRS SNOMED Code(s): 42355310 Comment: No c/o of chest pain- stable (2) DVT prophylaxis Status: Acute Priority: Low Code(s): QUM1658 - SNOMED Code(s): 111870880 Comment: SCD's heparin held d/t thrombocytopenia (3) Aphasia complicating stroke Status: Acute Priority: High Code(s): I63.9 - CEREBRAL INFARCTION, UNSPECIFIED; R47.01 - APHASIA SNOMED Code(s): 49952843 Comment: history of aphasia with prior CVA,- unchanged (4) Hypertension Status: Chronic Priority: Medium Code(s): I10 - ESSENTIAL (PRIMARY) HYPERTENSION SNOMED Code(s): 02739467 Comment: - Controlled. - Continue Metoprolol. (5) Hyperlipidemia Status: Chronic Priority: Medium Code(s): E78.5 - HYPERLIPIDEMIA, UNSPECIFIED SNOMED Code(s): 89967782 Comment: - Continue statin. (6) Depression Status: Acute Code(s): F32.9 - MAJOR DEPRESSIVE DISORDER, SINGLE EPISODE, UNSPECIFIED SNOMED Code(s): 29045083 Comment: Continue lamictal. (7) H/O: CVA (cerebrovascular accident) Status: Acute Code(s): Z86.73 - PRSNL HX OF TIA (TIA), AND CEREB INFRC W/O RESID DEFICITS SNOMED Code(s): 258261228 Comment: Plavix d/c'd d/t thrombocytopenia (8) DNR (do not resuscitate) Status: Acute (9) Seizure Status: Acute Code(s): R56.9 - UNSPECIFIED CONVULSIONS SNOMED Code(s): 05503165 Comment: start Keppra 500 mg po BID Follow up with Dr. Johnson in 1 month (10) Thrombocytopenia Status: Acute Code(s): D69.6 - THROMBOCYTOPENIA, UNSPECIFIED SNOMED Code(s) : 492545297 Comment: stop hydroxyurea stop plavix repeat cbc in 1 week (11) Head injury Status: Acute Code(s): S09.90XA - UNSPECIFIED INJURY OF HEAD, INITIAL ENCOUNTER SNOMED Code(s): 13465763 Comment: laceration to posterior head - repaired with 3 ruthann last night ruthann removed in 7 days Status and Disposition: Patient will be discharged home with son. Follow up with Dr. Johnson in 1 month call the office for appointment. Follow up with Dr. Lee this week Follow up with your primary care next week - ruthann removed in 7 days from posterior head Repeat CBC in 1 week Patient will be discharged with a prescription for Levetiracetam. Patient is instructed to stop hydroxyurea and Plavix. Patient is agreeable with this plan. RETURN TO THE EMERGENCY DEPARTMENT FOR CHANGING OR WORSENING SYMPTOMS.
--- NOTE | 2017-11-27 14:31 | DS ---
DISCHARGE SUMMARY: DATE OF ADMISSION: 11/25/17 DATE OF DISCHARGE: 11/26/17 PRIMARY CARE PROVIDER: Dr. Gonzalez. ATTENDING PHYSICIAN: Dr. Claudia Antonio (dictated by Cony Turner NP) PRIMARY DIAGNOSIS: Seizure. SECONDARY DIAGNOSES: 1. Left middle cerebral artery cerebrovascular accident in 2016. 2. Hypertension. 3. Hyperlipidemia. 4. Thrombocytosis. 5. Prostate cancer, [facility] 3+3, status post radical prostatectomy. 6. Gastroesophageal reflux disease. 7. Bipolar disorder. 8. Depression. STUDIES WHILE IN THE HOSPITAL: He had a CT of the brain on 11/24/17 and radiologist's impression: 1. No evidence of acute findings. 2. Moderate-sized area of encephalomalacia in the posterior left parietal lobe consistent with an ol d infarct. 3. Atrophic and [id number] chronic small vessel ischemic changes. Chest x-ray on 11/24/17, no evidence of acute disease. He also had electroencephalogram on 11/25/17, clinical impression: Abnormal EEG due to asymmetry of background rhythms with slower rhythms noted from the left hemisphere. This is compatible with the l eft hemisphere dysfunction and could be circulation representative of a prior cerebrovascular disease or posticta l state. There is no epileptiform discharges during this recording. He also had an MRI of the brain on 11/25/17, impression: 1. Left temporal and inferior parietal encephalomalacia consistent with remote infarct with associat ed [place]ian degeneration and volume loss of the left nasal temporal lobe. 2. Diffuse elevated T2/FLAIR signals in the periventricular and subcortical white matter suggesting chronic small vessel ischemia. On 11/25/17, he had a repeat CT of the head and C-spine after a fall in which he struck his head and had a laceration to the back of his head after the nurse heard yelling from the room between him and his son. CT of the brain on 11/25/17 at 2047, impression: Stable left frontoparietal encephalomalacia consist ent with remote infarct, no acute intracranial pathology. CT of the C-spine showed, impression: Osteopenia, degenerative disk disease, and osteoarthritis, no acute osseous injury of the cervical spine. DISCHARGE MEDICATIONS: He will be discharged home on Keppra 500 mg p.o. b.i.d. Continued home medications: 1. Atorvastatin 40 mg p.o. daily. 2. Acetaminophen 975 q.6 hours as needed. 3. Fish oil 1000 mg p.o. daily. 4. Metoprolol 12.5 mg p.o. b.i.d. 5. Milk of magnesia 30 mg p.o. q.4 hours as needed. 6. Ferrous gluconate 324 mg p.o. daily. 7. Vitamin B12 1000 mcg p.o. daily. 8. Oxycodone/acetaminophen 1 to 2 tablets every 4 hours as needed for pain. 9. Lamictal 125 mg p.o. at bedtime. 10. Omeprazole 20 mg daily. Medications that were discontinued during the stay were: 1. Plavix 75 mg. 2. Hydroxyurea. HISTORY OF PRESENT ILLNESS AND HOSPITAL COURSE: Mr. 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 Prior to his admission to the emergency room, he was home with his son. He had gone into the bathroom and he was unsteady, he developed some generalized convulsions fo r which EMS was called, and then en route to the hospital, he had a grand mal seizure despite being o n Lamictal for his bipolar disorder and on arrival to the ER, he was postictal. There was no report of loss of bowel or bladder function. While in the emergency room, he received CT of his head, an MRI, he had an EEG, which results were de scribed above previously and exams during his hospital stay. Essentially, the EEG did not show any ep ileptiform discharges. Dr. Johnson from Neurology was consulted and saw the patient in the emergency room. He recommended he be started on Keppra 500 mg b.i.d. He was admitted to the hospital for obs ervation overnight. We consulted Matt Lee MD, from Heme/Oncology, about his thrombocytopenia, f or which he recommended discontinuing the hydroxyurea and Plavix. On 11/25/17, I had reviewed the henry kiran instructions with the son and he was agreeable for discharge home. Sometime after reviewing the discharge instructions, the son and the father, the nurse heard started yelling from the room and the patient when the nurse entered the room was found on the floor, bleeding from the back of his he ad. He received a stat C-spine and CT of the brain, which were negative. He had a laceration repair to the posterior aspect of his head with 3 ruthann. The patient's discharge was canceled. On 11/26, the social work professor and case management and his other son, Sam, his case was discussed amongst them, Sam felt that it was safe for him to return home. I also got a consult from palliative care aron. The son was questioning whether he will be eligible for hospice care at home. Case manag ement and social work professor have deemed Mr. Damian safe to return to his home. He does have caregi vers and aide services at home to help him. He did have a PT assessment while in the hospital, which stated he was safe to return home. At this time, I feel that Mr. Damian is safe to return home. Mr. Damian is stable for discharge today. Vital signs are as follows: Temperature was 98.4, hear t rate was 65, respirations 14, O2 saturation was 100% on room air, blood pressure was 139/69. DISCHARGE PLAN: Ms. Damian will be discharged back home. The patient is to have ruthann removed from the back of his head in 7 days. ACTIVITY: As tolerated. DIET: He may resume his previous diet. In regards to his seizure, he will be placed on Keppra 500 mg p.o. b.i.d. He will resume all his oth er home medications with the exception of Plavix and hydroxyurea. FOLLOWUP: For followup, he should follow up with his primary care provider in 4 to 7 days. He shoul d follow up with Hematology/Oncology, Dr. Matt Lee, in 4 to 7 days. He has an appointment with h is primary care doctor, Dr. Gonzalez, on at 3 p.m. He should follow up with Dr. Shubham Johnson in 1 month. Visiting nurse service has also been contacted for the referral. I have reviewed this dis charge plan with his son, Sam, who was present in the room. The patient and family were instructed to return to the emergency room with any further seizures. This is a summary of report of a complex medical history and hospital stay. For further details, ple ase see the entire medical record. TIME SPENT: Time spent on this discharge was approximately 60 minutes; more than half the time was s pent with the patient and family discussing discharge plans and instructions. CONDITION ON DISCHARGE: Stable. CONY TURNER NP [id number]/[facility] #: [id number]
== END 2017-11-26 14:50 | disposition home or self-care (01) ==
LOC: ED 12:29 → MEDTELE 11-25 02:53
PROVIDERS: ADMIT Hospitalist; ATTEND Hospitalist
DX: R56.9 Unspecified convulsions (principal); D61.818 Other pancytopenia; F17.210 Nicotine dependence, cigarettes, uncomplicated
CPT/HCPCS: 36415; 70450; 70551; 71045; 72125; 80048; 80053; 80175; 81003; 81015; 83605; 83735; 84484; 85025; 85060; 85610; 93005; 95819; 96374; 99232; 99285; A9270-GY; G0378; G8978-GP-CH; G8979-GP-CH; G8980-GP-CH; G8987-GO-CJ; G8988-GO-CI; J2001